=== PATIENT | female | born 1975 | race Caucasian/White ===

== ENCOUNTER 2018-07-09 20:57 | Observation (INO) | payer OTHER ==
[2018-07-09] MEDS ORDERED: ASPIRIN 81 MG TABLET, CHEWABLE PO ONE (22:53)
--- NOTE | 2018-07-09 22:56 | ER Document Report ---
ED Medical Screen (RME) - General Chief Complaint: Shortness Of Breath Stated Complaint: SHORTNESS OF BREATH Time Seen by Provider: 07/09/18 22:53 Notes: 43-year-old female with a history of MT, 2 stents, and smoking comes with chief complaint of bilateral lower extremity swelling worsening for days and chest pain that started tonight. She also reports some dyspnea on exertion. She took 81 mg of aspirin, nitroglycerin prior to arrival. Denies history of blood clots or congestive heart failure. TRAVEL OUTSIDE OF THE [place] IN LAST 30 DAYS: No Physical Exam - Vital signs Vitals: Temp Pulse Resp BP Pulse Ox 98.8 F 88 16 103/65 100 07/09/18 21:12 07/09/18 21:12 07/09/18 21:12 07/09/18 21:12 07/09/18 21:12 - Respiratory Respiratory status: No respiratory distress. No: Respiratory distress, Labored Breath sounds: No: Decreased air movement, Wheezing - Cardiovascular Rhythm: Regular. No: Tachycardia Heart sounds: Normal auscultation, S1 appreciated, S2 appreciated - Extremities General lower extremity: Other - Bilateral lower extremity swelling to the feet, distal and proximal tibial areas Course - Re-evaluation Re-evalutation: Patient does have bilateral lower extremity swelling but she is in no respiratory distress, lungs sound clear, vital signs unremarkable. Workup pen jena. I have greeted and performed a rapid initial assessment of this patient. A comprehensive ED assessment and evaluation of the patient, analysis of test results and completion of the medical decision making process will be conducted by additional ED providers. - Vital Signs Vital signs: Temp Pulse Resp BP Pulse Ox 98.8 F 88 16 103/65 100 07/09/18 21:12 07/09/18 21:12 07/09/18 21:12 07/09/18 21:12 07/09/18 21:12
--- NOTE | 2018-07-09 23:33 | RADIOLOGY REPORT (SQ) ---
XR CHEST 1 VIEW HISTORY: Chest pain. Shortness of breath. COMPARISON: None. FINDINGS: The heart size is normal. No consolidation, pleural effusion, or pneumothorax is seen. There are no acute bony findings. IMPRESSION: No evidence of acute cardiopulmonary disease.
[2018-07-09 23:42] LABS: ABSOLUTE BASOPHILS # (AUTO) 0.1 10^3/uL (0.0-0.2); ABSOLUTE EOSINOPHILS # (AUTO) 0.4 10^3/uL (0.0-0.6); ABSOLUTE LYMPHOCYTES (AUTO) 2.8 10^3/uL (0.5-4.7); ABSOLUTE MONOCYTES (AUTO) 0.9 10^3/uL (0.1-1.4); BASOPHILS % (AUTO) 0.8 % (0-2); HEMATOCRIT 32.4 % (36.0-47.0); HEMOGLOBIN 11.2 g/dL (12.0-15.5); MEAN CORPUSCULAR HEMOGLOBIN 31.5 pg (27.0-33.4); MEAN CORPUSCULAR HGB CONC 34.6 g/dL (32.0-36.0); MEAN CORPUSCULAR VOLUME 91 fl (80-97); MONOCYTES % (AUTO) 9.3 % (3-13); PLATELET COUNT 626 10^3/uL (150-450); RED BLOOD COUNT 3.56 10^6/uL (3.72-5.28); RED CELL DISTRIBUTION WIDTH 13.9 % (11.5-14.0); SEGMENTED NEUTROPHILS % (AUTO) 54.9 % (42-78); TOTAL CELLS COUNTED % (AUTO) 100 %; WHITE BLOOD COUNT 9.2 10^3/uL (4.0-10.5)
[2018-07-09 23:52] LABS: ALANINE AMINOTRANSFERASE 47 U/L (9-52); ALKALINE PHOSPHATASE 123 U/L (38-126); ANION GAP 10 (5-19); ASPARTATE AMINO TRANSFERASE 37 U/L (14-36); BILIRUBIN,DIRECT 0.2 mg/dL (0.0-0.4); BILIRUBIN,TOTAL 0.4 mg/dL (0.2-1.3); BLOOD UREA NITROGEN 14 mg/dL (7-20); CALCIUM 9.6 mg/dL (8.4-10.2); CARBON DIOXIDE 29 mmol/L (22-30); CHLORIDE 98 mmol/L (98-107); GLUCOSE 105 mg/dL (75-110); POTASSIUM 4.3 mmol/L (3.6-5.0); SODIUM 137.1 mmol/L (137-145); TOTAL PROTEIN 6.6 g/dL (6.3-8.2)
[2018-07-10 00:09] LABS: NT PRO BNP 97 pg/mL (<125)
[2018-07-10 00:10] LABS: TROPONIN I < 0.012 ng/mL
[2018-07-10] MEDS ORDERED: LACTULOSE SYRUP 20 GM/30 ML UDCUP PO ONE (01:37)
--- NOTE | 2018-07-10 01:40 | ER Document Report ---
ED Cardiac - General Chief Complaint: Shortness Of Breath Stated Complaint: SHORTNESS OF BREATH Time Seen by Provider: 07/09/18 22:53 Mode of Arrival: Ambulatory Information source: Patient Notes: Patient complained of chest pain which started this evening around 6 PM when she was resting at home. She took 1 tablet of sublingual nitroglycerin and the pain went away. She also complained of shortness of breath which has been ongoing for the past 2 weeks and bilateral leg swelling which started 6 days ago. She denies a history of myocardial infarction with stent placement in November 2017 a normal Echocardiogram in November. She denies ever having a stress test in the past. TRAVEL OUTSIDE OF THE [place] IN LAST 30 DAYS: No - HPI Patient complains to provider of: Chest pain, Shortness of breath Was the onset of pain: Sudden Is the pain a: New problem Chest pain location: Substernal Quality of pain: Intermittent, Achy, Dull Severity now: Moderate Severity at worst: Moderate Pain level currently: 3 Chest pain precipitating factors: At Rest Cardiac risk factors: Hypertension, Hx NH Positive cardiac history: Yes Associated symptoms: denies: Abdominal pain, Nausea/vomiting Exacerbated by: Denies Relieved by: Nothing Similar symptoms previously: Yes Recently seen / treated by doctor: No - Related Data Allergies/Adverse Reactions: Sulfa (Sulfonamide Antibiotics) Allergy (Verified 07/09/18 23:02) Past Medical History - Social History Smoking Status: Current Every Day Smoker Frequency of alcohol use: None Drug Abuse: None Family History: Reviewed & Not Pertinent Patient has suicidal ideation: No Patient has homicidal ideation: No - Past Medical History Cardiac Medical History: Reports: Hx Heart Attack, Hx Hypercholesterolemia, Hx Hypertension Renal/ Medical History: Denies: Hx Peritoneal Dialysis Past Surgical History: Reports: Hx Cardiac Surgery Review of Systems - Review of Systems Constitutional: No symptoms reported EENT: No symptoms reported Cardiovascular: Chest pain Respiratory: Short of breath Gastrointestinal: No symptoms reported Genitourinary: No symptoms reported Female Genitourinary: No symptoms reported Musculoskeletal: Leg swelling Skin: No symptoms reported Hematologic/Lymphatic: No symptoms reported Neurological/Psychological: No symptoms reported -: Yes All other systems reviewed and negative Physical Exam - Vital signs Vitals: Temp Pulse Resp BP Pulse Ox 98.8 F 88 16 103/65 100 07/09/18 21:12 07/09/18 21:12 07/09/18 21:12 07/09/18 21:12 07/09/18 21:12 Interpretation: Normal - General General appearance: Appears well, Alert, Other - Obese In distress: None - HEENT Head: Normocephalic, Atraumatic Eyes: Normal Pupils: PERRL - Respiratory Respiratory status: No respiratory distress Chest status: Nontender Breath sounds: Normal Chest palpation: Normal - Cardiovascular Rhythm: Regular Heart sounds: Normal auscultation Murmur: No - Abdominal Inspection: Normal Distension: No distension Bowel sounds: Normal Tenderness: Nontender Organomegaly: No organomegaly - Back Back: Normal, Nontender - Extremities General upper extremity: Normal inspection, Nontender, Normal color, Normal ROM, Normal temperature General lower extremity: Normal inspection, Tender - Bilateral calf tenderness to palpation., Edema - 2+ pedal pitting edema bilaterally., Normal color, Normal ROM, Normal temperature, Normal weight bearing, Dominic's sign - Bilateral calf tenderness to palpation - Neurological Neuro grossly intact: Yes Cognition: Normal Orientation: AAOx4 [place] Coma Scale Eye Opening: Spontaneous [place] Coma Scale Verbal: Oriented [place] Coma Scale Motor: Obeys Commands [place] Coma Scale Total: 15 Speech: Normal Motor strength normal: LUE, RUE, LLE, RLE Sensory: Normal - Psychological Associated symptoms: Normal affect, Normal mood - Skin Skin Temperature: Warm Skin Moisture: Dry Skin Color: Normal Course - Vital Signs Vital signs: Temp Pulse Resp BP Pulse Ox 97.6 F 84 18 116/65 100 07/10/18 04:15 07/10/18 04:15 07/10/18 04:15 07/10/18 04:15 07/10/18 04:15 - Laboratory Result Diagrams: 07/09/18 23:25 07/09/18 23:25 Laboratory results interpreted by me: 07/09/18 07/09/18 23:25 23:25 RBC 3.56 L Hgb 11.2 L Hct 32.4 L Plt Count 626 H AST 37 H - Diagnostic Test Radiology reviewed: Reports reviewed - EKG Interpretation by Ma EKG shows normal: Sinus rhythm Rate: Normal - 89 Rhythm: NSR When compared to previous EKG there are: Previous EKG unavailable Additional EKG results interpreted by me: 07/10/18 01:41 Diffuse T wave abnormalities which is nonspecific. No old EKG for comparison. No STEMI. - Transfer of Care Notes: 07/10/18 01:41 Patient care was discussed with Dr. Yaw Iqbal with the hospitalist aviation project manager. He will admit patient to the hospital for further evaluation and management. Discharge - Discharge Clinical Impression: Chest pain at rest, Bilateral lower extremity edema Condition: Stable Disposition: ADMITTED INPATIENT Admitting Provider: Hospitalist Unit Admitted: Telemetry
[2018-07-10] MEDS ORDERED: NICOTINE 21 MG/24 HR PATCH.TD24 TD PRN (02:04)
[2018-07-10] MEDS ORDERED: CYCLOBENZAPRINE HCL 10 MG TABLET PO PRN (03:56)
[2018-07-10] MEDS ORDERED: ACETAMINOPHEN 325 MG TABLET PO PRN (05:34)
[2018-07-10] MEDS ORDERED: MAG HYDROX/AL HYDROX/SIMETH SUSP 30 ML UDCUP PO PRN (05:34)
[2018-07-10] MEDS ORDERED: NITROGLYCERIN 0.4 MG/TAB 25 TAB/BOTTLE SL PRN (05:34)
--- NOTE | 2018-07-10 06:44 | PDOC H&P ---
History of Present Illness Admission Date/PCP: 07/10/18 01:57 NICCI DOVER NP Patient complains of: Chest pain History of Present Illness: HIEU ALVAREZ is a 43 year old female with a past medical history of morbid obesity, hypertension, dyslipidemia, coronary artery disease with stent times 13 November 2017, persistent tobacco abuse and chronic back pain. She presents 10 days following lumbar spine back surgery with 6 days of bilateral leg swelling, fatigue, chest pain and constipation. In the emergency room she has an unremarkable workup and referred to the hospitalist for admission. Patient denies palpitations, admits nausea without vomiting and cannot recall her last bowel movement. Patient has been extremely sedentary following her back surgery ambulating with a walker a maximum of 20 feet. Recent change in medications include additional unknown narcotic. Past Medical History Cardiac Medical History: Reports: Myocardial Infarction, Hyperlipidema, Hypertension Endocrine Medical History: Reports: Obesity Psychiatric Medical History: Reports: Tobacco Dependency Denies: Depression Past Surgical History Past Surgical History: Reports: Coronary Stent - November 2017, Orthopedic Surgery - L-spine back surgery 10 days ago Social History Information Source: Patient Lives with: Friend Smoking Status: Current Every Day Smoker Cigarettes Packs Per Day: 1 Number of Years Smokin Last Time Smoked: 07/09/2018 Frequency of Alcohol Use: None Hx Recreational Drug Use: No Drugs: None Hx Prescription Drug Abuse: No - Advance Directive Resuscitation Status: Full Code Family History Family History: CAD, COPD, DM Parental Family History Reviewed: Yes Children Family History Reviewed: Yes Sibling(s) Family History Reviewed.: Yes Medication/Allergy Home Medications: Aspirin [Aspirin 81 mg Chewable Tablet] 81 mg PO DAILY 07/10/18 Atorvastatin Calcium [Lipitor 80 mg Tablet] 80 mg PO QHS 07/10/18 Cyclobenzaprine HCl [Flexeril 10 mg Tablet] 10 mg PO TIDP PRN 07/10/18 Escitalopram Oxalate [Lexapro 10 mg Tablet] 10 mg PO DAILY 07/10/18 Ezetimibe [Zetia] 10 mg PO DAILY 07/10/18 Famotidine [Pepcid 20 mg Tablet] 20 mg PO BID 07/10/18 Gabapentin [Neurontin 300 mg Capsule] 600 mg PO TID 07/10/18 Losartan Potassium [Cozaar 25 mg Tablet] 25 mg PO DAILY 07/10/18 Metoprolol Succinate [Toprol XL 100 mg Tablet] 100 mg PO DAILY 07/10/18 [place]-3 Acid Ethyl Esters [Lovaza 1 gm Capsule] 1 gm PO BID 07/10/18 Allergies/Adverse Reactions: Sulfa (Sulfonamide Antibiotics) Allergy (Verified 07/09/18 23:02) Review of Systems Constitutional: PRESENT: as per HPI, anorexia, fatigue, weight gain. ABSENT: fever(s) Eyes: ABSENT: visual disturbances Ears: ABSENT: hearing changes Cardiovascular: PRESENT: as per HPI, dyspnea on exertion, edema. ABSENT: orthropnea, palpitations Respiratory: PRESENT: dyspnea Gastrointestinal: PRESENT: as per HPI, abdominal pain, bloating, constipation, nausea. ABSENT: vomiting Genitourinary: PRESENT: as per HPI Musculoskeletal: PRESENT: as per HPI, back pain, muscle weakness, other - Deconditioning Integumentary: PRESENT: other - L-spine surgical site clean dry without erythema or pain. ABSENT: rash, wounds Neurological: ABSENT: abnormal gait, abnormal speech, confusion, dizziness, focal weakness, syncope Psychiatric: ABSENT: anxiety, depression, homidical ideation, suicidal ideation Endocrine: ABSENT: cold intolerance, heat intolerance, polydipsia, polyuria Hematologic/Lymphatic: ABSENT: easy bleeding, easy bruising Physical Exam Vital Signs: Temp Pulse Resp BP Pulse Ox 97.6 F 84 18 116/65 100 07/10/18 04:15 07/10/18 04:15 07/10/18 04:15 07/10/18 04:15 07/10/18 04:15 Intake & Output 07/08/18 07/09/18 07/10/18 11:59 11:59 11:59 Weight 114.3 kg General appearance: PRESENT: no acute distress, cooperative, morbidly obese Head exam: PRESENT: atraumatic, normocephalic Eye exam: PRESENT: conjunctiva pink, EOMI, PERRLA. ABSENT: scleral icterus Ear exam: PRESENT: normal external ear exam Mouth exam: PRESENT: moist, tongue midline Neck exam: ABSENT: carotid bruit, JVD, lymphadenopathy, thyromegaly Respiratory exam: PRESENT: clear to auscultation remy. ABSENT: rales, rhonchi, wheezes Cardiovascular exam: PRESENT: RRR. ABSENT: diastolic murmur, rubs, systolic murmur Pulses: PRESENT: normal dorsalis pedis pul Vascular exam: PRESENT: normal capillary refill GI/Abdominal exam: PRESENT: diminished bowel sounds, distended, hypoactive bowel sounds, normal bowel sounds, soft. ABSENT: guarding, mass, organolmegaly, rebound, tenderness Rectal exam: PRESENT: deferred Extremities exam: PRESENT: full ROM, +1 edema. ABSENT: calf tenderness, clubbing, pedal edema, tenderness Musculoskeletal exam: PRESENT: other - L-spine surgical site clean, dry, without erythema or pain Neurological exam: PRESENT: alert, awake, oriented to person, oriented to place, oriented to time, oriented to situation, CN II-XII grossly intact. ABSENT: motor sensory deficit Psychiatric exam: PRESENT: appropriate affect, normal mood. ABSENT: homicidal ideation, suicidal ideation Skin exam: PRESENT: dry, intact, warm. ABSENT: cyanosis, rash Results Laboratory Results: 07/09/18 23:25 07/09/18 23:25 07/09/18 07/09/18 07/09/18 23:25 23:25 23:25 WBC 9.2 RBC 3.56 L Hgb 11.2 L Hct 32.4 L MCV 91 MCH 31.5 MCHC 34.6 RDW 13.9 Plt Count 626 H Seg Neutrophils % 54.9 Lymphocytes % 31.0 Monocytes % 9.3 Eosinophils % 4.0 Basophils % 0.8 Absolute Neutrophils 5.0 Absolute Lymphocytes 2.8 Absolute Monocytes 0.9 Absolute Eosinophils 0.4 Absolute Basophils 0.1 Sodium 137.1 Potassium 4.3 Chloride 98 Carbon Dioxide 29 Anion Gap 10 BUN 14 Creatinine 1.01 Est GFR ( Amer) > 60 Est GFR (Non-Af Amer) > 60 Glucose 105 Calcium 9.6 Total Bilirubin 0.4 AST 37 H ALT 47 Alkaline Phosphatase 123 Total Protein 6.6 Albumin 4.0 Serum HCG, Qual NEGATIVE 07/09/18 07/10/18 23:25 02:15 Troponin I < 0.012 < 0.012 NT-Pro-B Natriuret Pep 97 Impressions: Chest X-Ray 07/09/18 22:53 IMPRESSION: No evidence of acute cardiopulmonary disease. Assessment and Plan - Diagnosis (1) Chest pain Is this a current diagnosis for this admission?: Yes Plan: Atypical chest pain though the patient's pain is atypical there are multiple risk factors for coronary artery disease and subsequently will observe and evaluation of acute coronary syndrome versus coronary artery disease with anginal equivalents. Cardiac monitoring blood pressure Q6 hours ,TSH, lipid profile, serial cardiac enzymes and cardiac stress test (2) Constipation Is this a current diagnosis for this admission?: Yes Plan: Lactulose, Fleet enema as needed (3) Bilateral lower extremity edema Is this a current diagnosis for this admission?: Yes Plan: Venous stasis secondary to immobility. SADIE stockings ordered - Time Time Spent with patient: 25-34 minutes
[2018-07-10] MEDS ORDERED: FAMOTIDINE 20 MG TABLET PO SCH (10:00)
[2018-07-10] MEDS ORDERED: LOSARTAN POTASSIUM 25 MG TABLET PO SCH (10:00)
[2018-07-10] MEDS ORDERED: ESCITALOPRAM OXALATE 10 MG TABLET PO SCH (10:00)
[2018-07-10] MEDS ORDERED: EZETIMIBE 10 MG TABLET PO SCH (10:00)
[2018-07-10] MEDS ORDERED: TICAGRELOR 90 MG TABLET PO SCH (10:00)
[2018-07-10] MEDS ORDERED: ASPIRIN 81 MG TABLET, CHEWABLE PO SCH (10:00)
[2018-07-10] MEDS: GABAPENTIN 300 MG CAPSULE PO SCH ×2 (10:33→14:23)
[2018-07-10] MEDS ORDERED: REGADENOSON INJ 0.4 MG/5 ML DISP.SYRIN IV ONE (12:01)
[2018-07-10 14:53] VITALS: BP 103/65
--- NOTE | 2018-07-10 15:07 | XCELERA REPORT ---
[address] [facility] [address] Lower Extremity Venous Evaluation Procedure: Color flow and duplex imaging bilaterally of the veins of the lower extremities as well as the Common Femoral veins. Right Sided Venous Evaluation Normal vessel filling wall to wall, compression and augmentation as well as Colour flow down to the infrageniculate veins. Left Sided Venous Evaluation Normal vessel filling wall to wall, compression and augmentation as well as Colour flow down to the infrageniculate veins. Interpretation Summary No duplex evidence of DVT or obstruction in the bilateral lower extremities. Name: HIEU ALVAREZ Age: 43 yrs Gender: Female : 1975 Patient Status: Inpatient Patient Location: [facility]^A Study Date: 07/10/2018 11:35 AM Reason For Study: Bilateral leg pain and swelling, evaluate for DVT. Ordering Physician: SADI TINAJERO Performed By: Nasim Jaffe : SADI TINAJERO > Regino Yuen
--- NOTE | 2018-07-10 17:54 | PDOC DISCHARGE SUMMARY ---
General - Admit/Disc Date/PCP Admission Date/Primary Care Provider: 07/10/18 01:57 NICCI DOVER NP Discharge Date: 07/10/18 - Discharge Diagnosis (1) Chest pain Is this a current diagnosis for this admission?: Yes - Additional Information Resuscitation Status: Full Code Prescriptions: Isosorbide Mononitrate [Imdur 30 mg Tablet.er] 30 mg PO DAILY #30 tab.er.24h Pantoprazole Sodium [Protonix] 40 mg PO QAM #30 tablet. Home Medications: Aspirin [Adult Low Dose Aspirin EC] 81 mg PO DAILY 07/10/18 Atorvastatin Calcium [Lipitor 80 mg Tablet] 80 mg PO QHS 07/10/18 Cyclobenzaprine HCl [Flexeril 10 mg Tablet] 10 mg PO Q8HP PRN 07/10/18 Escitalopram Oxalate [Lexapro 10 mg Tablet] 10 mg PO DAILY 07/10/18 Ezetimibe [Zetia 10 mg Tablet] 10 mg PO DAILY 07/10/18 Famotidine [Pepcid 20 mg Tablet] 20 mg PO BID 07/10/18 Gabapentin [Neurontin 300 mg Capsule] 600 mg PO Q8 07/10/18 Isosorbide Mononitrate [Imdur 30 mg Tablet.er] 30 mg PO DAILY #30 tab.er.24h 07/10/18 Losartan Potassium [Cozaar 25 mg Tablet] 25 mg PO DAILY 07/10/18 Metoprolol Succinate [Toprol XL 100 mg Tablet] 100 mg PO DAILY 07/10/18 [place]-3 Acid Ethyl Esters [Lovaza 1 gm Capsule] 1 gm PO BID 07/10/18 Oxycodone HCl [Oxy-Ir 5 mg Tablet] 5 mg PO Q6HP PRN 07/10/18 Pantoprazole Sodium [Protonix] 40 mg PO QAM #30 tablet. 07/10/18 Ticagrelor [Brilinta 90 mg Tablet] 90 mg PO BID 07/10/18 History of Present Illness History of Present Illness: Admitting hospitalist's H&P: HIEU ALVAREZ is a 43 year old female with a past medical history of morbid obesity, hypertension, dyslipidemia, coronary artery disease with stent times 13 November 2017, persistent tobacco abuse and chronic back pain. She presents 10 days following lumbar spine back surgery with 6 days of bilateral leg swelling, fatigue, chest pain and constipation. In the emergency room she has an unremarkable workup and referred to the hospitalist for admission. Patient denies palpitations, admits nausea without vomiting and cannot recall her last bowel movement. Patient has been extremely sedentary following her back surgery ambulating with a walker a maximum of 20 feet. Recent change in medications include additional unknown narcotic. Hospital Course Hospital Course: This is a 43 yr old female with CAD S/P stenting x 2 and GERD who presented with chest pain and was admitted to rule out ACS. Patient's serial troponins were all negative. EKG also was unremarkable. Stress testing was pursued and results were discussed with cardiology. There was a very small reversible defect on the apical region. Cardio recommends optimizing medical therapy. Imdur will be added to her regimen. She will closely follow up with Dr. Saini as outpatient. Patient described her chest discomfort more as "burning sensation". She does have history of GERD and was on ranitidine before. She will also be discharged with a trial of Protonix. Physical Exam Vital Signs: Temp Pulse Resp BP Pulse Ox 97.5 F 92 16 103/65 98 07/10/18 14:53 07/10/18 14:53 07/10/18 14:53 07/10/18 14:53 07/10/18 14:53 Intake & Output 07/09/18 07/10/18 07/11/18 06:59 06:59 06:59 Weight 253 lb 8.505 oz General appearance: PRESENT: no acute distress, well-developed, well-nourished Head exam: PRESENT: atraumatic, normocephalic Eye exam: PRESENT: conjunctiva pink, EOMI, PERRLA. ABSENT: scleral icterus Ear exam: PRESENT: normal external ear exam Mouth exam: PRESENT: moist, tongue midline Neck exam: ABSENT: carotid bruit, JVD, lymphadenopathy, thyromegaly Respiratory exam: PRESENT: clear to auscultation remy. ABSENT: rales, rhonchi, wheezes Cardiovascular exam: PRESENT: RRR. ABSENT: diastolic murmur, rubs, systolic murmur Pulses: PRESENT: normal dorsalis pedis pul Vascular exam: PRESENT: normal capillary refill GI/Abdominal exam: PRESENT: normal bowel sounds, soft. ABSENT: distended, guarding, mass, organolmegaly, rebound, tenderness Rectal exam: PRESENT: deferred Extremities exam: PRESENT: full ROM. ABSENT: calf tenderness, clubbing, pedal edema Neurological exam: PRESENT: alert, awake, oriented to person, oriented to place, oriented to time, oriented to situation, CN II-XII grossly intact. ABSENT: motor sensory deficit Results Laboratory Results: 07/09/18 23:25 07/09/18 23:25 07/09/18 07/09/18 07/09/18 23:25 23:25 23:25 WBC 9.2 RBC 3.56 L Hgb 11.2 L Hct 32.4 L MCV 91 MCH 31.5 MCHC 34.6 RDW 13.9 Plt Count 626 H Seg Neutrophils % 54.9 Lymphocytes % 31.0 Monocytes % 9.3 Eosinophils % 4.0 Basophils % 0.8 Absolute Neutrophils 5.0 Absolute Lymphocytes 2.8 Absolute Monocytes 0.9 Absolute Eosinophils 0.4 Absolute Basophils 0.1 Sodium 137.1 Potassium 4.3 Chloride 98 Carbon Dioxide 29 Anion Gap 10 BUN 14 Creatinine 1.01 Est GFR ( Amer) > 60 Est GFR (Non-Af Amer) > 60 Glucose 105 Calcium 9.6 Total Bilirubin 0.4 AST 37 H ALT 47 Alkaline Phosphatase 123 Total Protein 6.6 Albumin 4.0 Serum HCG, Qual NEGATIVE 07/09/18 07/10/18 07/10/18 23:25 02:15 06:00 Troponin I < 0.012 < 0.012 < 0.012 NT-Pro-B Natriuret Pep 97 Impressions: Chest X-Ray 07/09/18 22:53 IMPRESSION: No evidence of acute cardiopulmonary disease. Qualifiers - * PATIENT BEING DISCHARGED WITH ANY OF THE FOLLOWING DIAGNOSIS: No
--- NOTE | 2018-07-10 20:59 | EKG REPORT ---
SEVERITY:- BORDERLINE ECG - SINUS RHYTHM BORDERLINE PROLONGED QT INTERVAL : Confirmed by: Candice Moran MD 10-Jul-2018 20:59:23
--- NOTE | 2018-07-10 20:59 | EKG REPORT ---
SEVERITY:- BORDERLINE ECG - SINUS RHYTHM BORDERLINE T ABNORMALITIES, INFERIOR LEADS : Confirmed by: Candice Moran MD 10-Jul-2018 20:59:14
[2018-07-10] MEDS ORDERED: ATORVASTATIN CALCIUM 80 MG TABLET PO SCH (22:00)
--- NOTE | 2018-07-11 18:09 | DRAGON STRESS TEST REPORT ---
Intravenous Lexiscan Cardiolite stress test using single photon emmision computerized tomography. Date of procedure: 07/10/2018. Ordering Provider: Dr. Yaw Iqbal. Patient's status: In Patient Indication: Chest pain in a patient with a prior history of coronary artery disease, myocardial infarction and history of stents.. Coronary risk factors: Age, hypertension, dyslipidemia, tobacco abuse disorder, and family history of coronary artery disease Resting EKG: Sinus Rhythm. No acute changes. The patient has no chest pain or discomfort, and there were no arrhythmias seen. Stress EKG: No changes of ischemia. The patient had no chest pain or discomfort, and there were no arrhythmias seen. Reason for termination: Protocol. Conclusions: Normal EKG and hemodynamic response to IV Lexiscan. Nuclear data: At rest the patient was given 10.93 millicuries of technetium 99m sestamibi injected intravenously. As per protocol rest non gated SPECT images were obtained. Subsequently the patient was given intravenous Lexiscan at a dose of 0.4 mg in 5 mL intravenously, followed by flush with normal saline. Subsequently the stress dose of millicuries of technetium 99m sestamibi was injected intravenously. As per protocol stress gated images were obtained. Nuclear interpretation: Review of images showed that this is a difficult study to interpret. There is a small area of mild perfusion defect involving the left ventricle apex, and the apical anterior wall in the stress images, which normalizes in the stress images. The rest of the segments of the myocardium had normal perfusion at rest, and normal perfusion post stress with IV Lexiscan. All segments of the myocardium had normal motion, contraction, and thickening by gated study. T. I D. ratio was normal at 0.90. There is no transient ischemic dilatation of the left ventricle. Computer read rest, and stress left ventricular ejection fraction were 60 %, and 59 %, respectively. Conclusion: 1. There is scintigraphic evidence of Lexiscan induced myocardial ischemia, involving a small area of very mild reversible ischemia of the apical anterior wall, and the left ventricle apex.. 2. There is no scintigraphic evidence of myocardial infarction/scar. Recommendations: 1. Aggressive treatment of coronary artery disease, and if the patient has recurrence of chest pain would recommend cardiac catheterization. 2. Aggressive risk factor modification, and treating the underlying co- morbidities. 3. Close cardiology follow-up as an outpatient [facility]
== END 2018-07-10 15:25 | disposition home or self-care (01) ==
LOC: ER 20:57 → EH 07-10 01:57 → INTOOBSV 07-10 01:57 → 3N 07-10 04:09
PROVIDERS: ADMIT Internal Medicine; ATTEND Internal Medicine
DX: R07.89 Other chest pain (principal); E78.5 Hyperlipidemia, unspecified; I10 Essential (primary) hypertension; G89.29 Other chronic pain; M54.9 Dorsalgia, unspecified; K59.00 Constipation, unspecified; K21.9 Gastro-esophageal reflux disease without esophagitis; M79.89 Other specified soft tissue disorders; R53.83 Other fatigue; R63.0 Anorexia; F17.210 Nicotine dependence, cigarettes, uncomplicated; I25.2 Old myocardial infarction; I25.10 Atherosclerotic heart disease of native coronary artery without angina pectoris; R14.0 Abdominal distension (gaseous); R11.0 Nausea; R06.02 Shortness of breath; E66.9 Obesity, unspecified; I87.8 Other specified disorders of veins; Z74.09 Other reduced mobility; Z79.82 Long term (current) use of aspirin; Z95.5 Presence of coronary angioplasty implant and graft; Z79.899 Other long term (current) drug therapy; Z98.890 Other specified postprocedural states; Z82.49 Family history of ischemic heart disease and other diseases of the circulatory system
CPT/HCPCS: 93005 ×2; 99285; 36415 ×2; 84703; 85025; 80053; 84484 ×2; 83880; 93970 ×2; 93017; 71045; 78452; 93010 ×2; G0378; A9500; J2785; J3490; Q9969

== ENCOUNTER 2018-08-05 00:25 | Emergency (ER) | payer OTHER ==
[2018-08-05 02:40] LABS: ABSOLUTE BASOPHILS # (AUTO) 0.1 10^3/uL (0.0-0.2); ABSOLUTE EOSINOPHILS # (AUTO) 0.3 10^3/uL (0.0-0.6); ABSOLUTE LYMPHOCYTES (AUTO) 2.9 10^3/uL (0.5-4.7); ABSOLUTE MONOCYTES (AUTO) 0.6 10^3/uL (0.1-1.4); ABSOLUTE NEUT (AUTO) 4.4 10^3/uL (1.7-8.2); BASOPHILS % (AUTO) 1.2 % (0-2); EOSINOPHILS % (AUTO) 3.9 % (0-6); HEMATOCRIT 33.1 % (36.0-47.0); HEMOGLOBIN 11.3 g/dL (12.0-15.5); MEAN CORPUSCULAR HEMOGLOBIN 30.6 pg (27.0-33.4); MEAN CORPUSCULAR HGB CONC 34.1 g/dL (32.0-36.0); MEAN CORPUSCULAR VOLUME 90 fl (80-97); PLATELET COUNT 445 10^3/uL (150-450); RED BLOOD COUNT 3.69 10^6/uL (3.72-5.28); SEGMENTED NEUTROPHILS % (AUTO) 52.9 % (42-78); TOTAL CELLS COUNTED % (AUTO) 100 %; WHITE BLOOD COUNT 8.2 10^3/uL (4.0-10.5)
[2018-08-05 02:45] LABS: INTERNATIONAL RATION (INR) 0.79; PARTIAL THROMBOPLASTIN TIME 31.7 SEC (23.5-35.8); PROTHROMBIN TIME 11.4 SEC (11.4-15.4)
[2018-08-05 02:54] LABS: D-DIMER 0.42 ug/mL (0.00-0.50)
--- NOTE | 2018-08-05 02:54 | RADIOLOGY REPORT (SQ) ---
EXAM DESCRIPTION: XR CHEST 1 VIEW COMPLETED DATE/TME: 08/05/2018 01:57 CLINICAL HISTORY: 43 years Female, cp COMPARISON:Jul 10 2018 NUMBER OF VIEWS/TECHNIQUE: 1/AP FINDINGS: Adequate lung volume, clear parenchyma, normal cardiac silhouette, and intact bony thorax.Atherosclerotic vascular disease. IMPRESSION: No acute cardiopulmonary findings.
[2018-08-05 02:59] LABS: ALANINE AMINOTRANSFERASE 24 U/L (9-52); ALBUMIN 4.1 g/dL (3.5-5.0); ALKALINE PHOSPHATASE 84 U/L (38-126); ANION GAP 10 (5-19); ASPARTATE AMINO TRANSFERASE 32 U/L (14-36); BILIRUBIN,DIRECT 0.4 mg/dL (0.0-0.4); BILIRUBIN,TOTAL 0.5 mg/dL (0.2-1.3); BLOOD UREA NITROGEN 13 mg/dL (7-20); CALCIUM 9.6 mg/dL (8.4-10.2); CARBON DIOXIDE 20 mmol/L (22-30); CHLORIDE 109 mmol/L (98-107); GLUCOSE 108 mg/dL (75-110); POTASSIUM 4.4 mmol/L (3.6-5.0); SODIUM 138.7 mmol/L (137-145)
[2018-08-05] MEDS ORDERED: METOPROLOL TARTRATE 50 MG TABLET PO ONE (03:06)
[2018-08-05] MEDS ORDERED: GABAPENTIN 300 MG CAPSULE PO ONE (03:41)
--- NOTE | 2018-08-05 03:42 | ER Document Report ---
ED General - General Chief Complaint: Shortness Of Breath Stated Complaint: DIFFICULTY BREATHING Time Seen by Provider: 08/05/18 01:56 Notes: Patient is a 43-year-old female with past medical history of coronary artery disease status post stenting in November 2017, tachycardia, hyperlipidemia, presents complaining of shortness of breath. Patient states that this started after she became upset earlier this evening at approximately 2030. She states she was upset because she was having severe uncontrolled pain in her bilateral lower extremities from chronic peripheral neuropathy and is currently out of most of her medications including gabapentin. She states that she began to feel somewhat short of breath, checked her heart rate and found to be into the 120s- 130s. She states that her symptoms were relatively abrupt in onset, progress ively worsening since that time. Nothing seemed to improve or worsen her symptoms. Denies a history of similar symptoms in regards to the shortness of breath in the past. Contrary to the triage assessment of the patient is clear to state that she is not having any chest pain. She states it feels like her heart is racing and that she cannot finish her sentence without needing to take a breath. She denies any history of DVT or pulmonary embolus. She denies any pleuritic pain. No supplemental estrogen. Did have spinal surgery approximately 6 weeks ago but has been up and ambulating per her normal since that time. Has not seen her primary care physician regarding today's concerns. TRAVEL OUTSIDE OF THE [place] IN LAST 30 DAYS: No - Related Data Allergies/Adverse Reactions: Sulfa (Sulfonamide Antibiotics) Allergy (Verified 07/09/18 23:02) Past Medical History - General Information source: Patient - Social History Smoking Status: Never Smoker Frequency of alcohol use: None Drug Abuse: None Lives with: Spouse/Significant other Family History: CAD, COPD, DM Patient has suicidal ideation: No Patient has homicidal ideation: No - Past Medical History Cardiac Medical History: Reports: Hx Heart Attack, Hx Hypercholesterolemia, Hx Hypertension Renal/ Medical History: Denies: Hx Peritoneal Dialysis Psychiatric Medical History: Denies: Hx Depression Past Surgical History: Reports: Hx Cardiac Surgery, Hx Coronary Stent - November 2017, Hx Orthopedic Surgery - L-spine back surgery 10 days ago Review of Systems - Review of Systems Notes: PHYSICAL EXAMINATION: GENERAL: Well-appearing, well-nourished and in no acute distress. HEAD: Atraumatic, normocephalic. EYES: Pupils equal round and reactive to light, extraocular movements intact, sclera anicteric, conjunctiva are normal. ENT: nares patent, oropharynx clear without exudates. Moist mucous membranes. NECK: Normal range of motion, supple without lymphadenopathy LUNGS: Breath sounds clear to auscultation bilaterally and equal. No wheezes rales or rhonchi. HEART: Regular rate and rhythm without murmurs ABDOMEN: Soft, nontender, normoactive bowel sounds. No guarding, no rebound. No masses appreciated. EXTREMITIES: Normal range of motion, no pitting or edema. No cyanosis. NEUROLOGICAL: No focal neurological deficits. Moves all extremities spontaneously and on command. PSYCH: Normal mood, normal affect. SKIN: Warm, Dry, normal turgor, no rashes or lesions noted. Physical Exam - Vital signs Vitals: Temp Pulse BP Pulse Ox 98.3 F 110 H 130/85 H 99 08/05/18 00:52 08/05/18 00:52 08/05/18 00:52 08/05/18 00:52 Interpretation: Tachycardic Notes: PHYSICAL EXAMINATION: GENERAL: Well-appearing, well-nourished and in no acute distress. HEAD: Atraumatic, normocephalic. EYES: Pupils equal round and reactive to light, extraocular movements intact, sclera anicteric, conjunctiva are normal. ENT: nares patent, oropharynx clear without exudates. Moist mucous membranes. NECK: Normal range of motion, supple without lymphadenopathy LUNGS: Breath sounds clear to auscultation bilaterally and equal. No wheezes rales or rhonchi. HEART: Regular tachycardia without murmurs ABDOMEN: Soft, nontender, normoactive bowel sounds. No guarding, no rebound. No masses appreciated. EXTREMITIES: Normal range of motion, no pitting or edema. No cyanosis. NEUROLOGICAL: No focal neurological deficits. Moves all extremities spontaneously and on command. PSYCH: Normal mood, normal affect. SKIN: Warm, Dry, normal turgor, no rashes or lesions noted. Course - Re-evaluation Re-evalutation: 08/05/18 03:48 Patient presents with palpitations with associated shortness of breath and feeling winded. Contrary to triage assessment note by the nurse the patient denied chest pain to me at all times. She states that she simply felt like she could not catch her breath at the end of a sentence, felt like her heart rate was going very fast, checked at home and found it to be up into the 120s-130s. Patient states that due to lack of insurance she has come off most all of her medications although still does take her Brilinta after receiving a drug-eluting stent at the end of November. Patient was hospitalized, had a stress test within the past 1 month that showed a very small area of reversible area of ischemia which was medically managed. EKG today without ischemic changes. Given patient's tachycardia and complaint of shortness of breath a d-dimer was obtained which is negative. Will not pursue CTA thereafter. Chest x-ray is clear without any evidence of pneumothorax, widened mediastinum. Pulses are symmetric bilaterally, blood pressures within 20 mmHg bilaterally. Troponin obtained 6 hours after onset of patient's shortness of breath is noted to be normal. I did have an extended conversation with the patient and her regarding obtaining a second troponin. We reviewed that although the patient did present and blood draw was obtained 6 hours after onset of her mild shortne ss of breath, the most cautious thing to do at this point would be to obtain a second troponin three hours after the initial. We did review that the probability that this would become positive is less than 5% but is not 0%. I did advise that this is the safest, most cautious approach would be a more definitive exclusion of any cardiac etiology of tonight's presentation. After this conversation the patient and her did elect to be discharged at this time accepting the non-insignificant risk that this could be an undetected infarction event that could be detected on a repeat troponin. They understand the risks of this approach, have verbalized an understanding of missed ischemic event. I have refilled the patient's metoprolol which she has run out of and I do suspect is a major contributor to tonight symptoms. The patient did come off of this medication abruptly within the past 3 days. I also refilled her gabapentin. Have advised need to continue all other medications and follow-up in the [facility] if she has lack of access to care. At this time will discharge with return precautions and follow-up recommendations. Verbal discharge instructions given a the bedside and opportunity for questions given. Medication warnings reviewed. Patient is in agreement with this plan and has verbalized understanding of return precautions and the need for primary care follow-up in the next 24-72 hours. - Vital Signs Vital signs: Temp Pulse Resp BP Pulse Ox 98.3 F 110 H 130/85 H 99 08/05/18 00:52 08/05/18 00:52 08/05/18 00:52 08/05/18 00:52 - Laboratory Result Diagrams: 08/05/18 02:27 08/05/18 02:27 Laboratory results interpreted by me: 08/05/18 08/05/18 02:27 02:27 RBC 3.69 L Hgb 11.3 L Hct 33.1 L RDW 15.0 H Chloride 109 H Carbon Dioxide 20 L - Diagnostic Test Radiology reviewed: Image reviewed, Reports reviewed Radiology results interpreted by me: 08/05/18 03:54 Chest x-ray: No acute infiltrate or pneumothorax - EKG Interpretation by Me Additional EKG results interpreted by me: 08/05/18 03:54 Sinus tachycardia, rate 115. No ST elevations or depressions. QTC is 465. Discharge - Discharge Clinical Impression: Shortness of breath, Beta-tamiko withdrawal, Palpitations Peripheral neuropathy Qualifiers: Peripheral neuropathy type: polyneuropathy, unspecified Qualified Code(s): G62.9 - Polyneuropathy, unspecified Condition: Stable Disposition: HOME, SELF-CARE Additional Instructions: You were seen today for shortness of breath and palpitations. The exact cause of your symptoms is unclear but could be related to coming off her beta-blockers abruptly. However, based on your cardiac enzyme testing, chest x-ray, and EKG it does not appear that it is from an immediately life-threatening cause at this time. After our conversation you have elected to go home after before a second troponin. Please return to emergency department immediately if you have worsening of your shortness of breath, develop chest pain, vomiting, become unable to exert yourself due to pain or difficulty breathing, you pass out, or have any pain that radiates into your arms, jaw, or back. Please also return if you have any additional symptoms that are concerning to you. Prescriptions: Gabapentin 600 mg PO TID #90 tablet Metoprolol Succinate [Toprol XL 100 mg Tablet] 100 mg PO DAILY #30 tab.sr.24h
[2018-08-05 04:07] VITALS: BP 134/83
--- NOTE | 2018-08-05 07:54 | EKG REPORT ---
SEVERITY:- ABNORMAL ECG - SINUS TACHYCARDIA BORDERLINE INFERIOR Q WAVES NONSPECIFIC ST-T CHANGES- ANTERIOR LEADS : Confirmed by: Omari Meneses MD 05-Aug-2018 07:53:51
== END 2018-08-05 04:07 | disposition home or self-care (01) ==
LOC: ER 00:25
DX: R06.02 Shortness of breath (principal); G62.9 Polyneuropathy, unspecified; R00.2 Palpitations; F15.93 Other stimulant use, unspecified with withdrawal; R00.0 Tachycardia, unspecified; E78.00 Pure hypercholesterolemia, unspecified; I10 Essential (primary) hypertension; Z88.2 Allergy status to sulfonamides; I25.2 Old myocardial infarction
CPT/HCPCS: 36415; 71045; 80053; 84484; 85025; 85379; 85610; 85730; 93005; 93010; 99285

== ENCOUNTER 2018-10-06 20:45 | Emergency (ER) | payer OTHER ==
[2018-10-06 22:16] LABS: ABSOLUTE BASOPHILS # (AUTO) 0.1 10^3/uL (0.0-0.2); ABSOLUTE EOSINOPHILS # (AUTO) 0.2 10^3/uL (0.0-0.6); ABSOLUTE LYMPHOCYTES (AUTO) 3.1 10^3/uL (0.5-4.7); ABSOLUTE MONOCYTES (AUTO) 0.5 10^3/uL (0.1-1.4); ABSOLUTE NEUT (AUTO) 4.6 10^3/uL (1.7-8.2); BASOPHILS % (AUTO) 1.2 % (0-2); HEMATOCRIT 40.4 % (36.0-47.0); HEMOGLOBIN 13.7 g/dL (12.0-15.5); INTERNATIONAL RATION (INR) 0.93; LYMPHOCYTES % (AUTO) 36.5 % (13-45); MEAN CORPUSCULAR HEMOGLOBIN 29.4 pg (27.0-33.4); MEAN CORPUSCULAR VOLUME 87 fl (80-97); MONOCYTES % (AUTO) 6.3 % (3-13); PLATELET COUNT 497 10^3/uL (150-450); PROTHROMBIN TIME 12.5 SEC (11.4-15.4); RED BLOOD COUNT 4.67 10^6/uL (3.72-5.28); RED CELL DISTRIBUTION WIDTH 15.9 % (11.5-14.0); TOTAL CELLS COUNTED % (AUTO) 100 %; WHITE BLOOD COUNT 8.6 10^3/uL (4.0-10.5)
[2018-10-06 22:33] LABS: ALANINE AMINOTRANSFERASE 28 U/L (9-52); ALBUMIN 4.6 g/dL (3.5-5.0); ALKALINE PHOSPHATASE 95 U/L (38-126); ANION GAP 16 (5-19); ASPARTATE AMINO TRANSFERASE 23 U/L (14-36); BILIRUBIN,DIRECT 0.3 mg/dL (0.0-0.4); BILIRUBIN,TOTAL 0.5 mg/dL (0.2-1.3); BLOOD UREA NITROGEN 10 mg/dL (7-20); CALCIUM 10.5 mg/dL (8.4-10.2); CARBON DIOXIDE 22 mmol/L (22-30); CHLORIDE 101 mmol/L (98-107); CREATINE KINASE 63 U/L (30-135); GLUCOSE 104 mg/dL (75-110); SODIUM 138.5 mmol/L (137-145); TOTAL PROTEIN 7.5 g/dL (6.3-8.2)
--- NOTE | 2018-10-06 22:50 | ER Document Report ---
ED General - General Chief Complaint: Chest Pain > 30 Stated Complaint: SHORTNESS OF BREATH,CHEST PAIN Time Seen by Provider: 10/06/18 22:49 Primary Care Provider: JERSEY GARCIA MD [ACTIVE STAFF] - Follow up tomorrow Notes: Patient is a 43-year-old female presents with complaint of chest pain. She has been stressing chest and radiates up into the left side of the neck. She does have a previous history of MD had 2 stents placed in 2018. She was seen here in June of this year and had a stress test which showed a small area of ischemia. At that time recommendations per the cardiology notes was to potentially do cardiac cath of chest pain return. Patient says since Friday she has had chest pain which is worsening. Is worse when she takes a deep breath. No fevers. No vomiting. No history of PE. She said that she has ran out of her cardiac meds with the exception of Brilinta. She supposed to take Brilinta twice a day but she is only been taking it once a day to try to make it last longer. She denies any fevers. No leg pain or leg swelling that is new. No vomiting. She does feel short of breath with the pain. She did run out of her metoprolol. She did take aspirin today at home before coming in. TRAVEL OUTSIDE OF THE [place] IN LAST 30 DAYS: No - Related Data Allergies/Adverse Reactions: Sulfa (Sulfonamide Antibiotics) Allergy (Verified 07/09/18 23:02) Past Medical History - Social History Smoking Status: Unknown if Ever Smoked Frequency of alcohol use: None Drug Abuse: None Family History: CAD, COPD, DM - Past Medical History Cardiac Medical History: Reports: Hx Heart Attack, Hx Hypercholesterolemia, Hx Hypertension Renal/ Medical History: Denies: Hx Peritoneal Dialysis Psychiatric Medical History: Denies: Hx Depression Past Surgical History: Reports: Hx Cardiac Surgery, Hx Coronary Stent - November 2017, Hx Orthopedic Surgery - L-spine back surgery 10 days ago Review of Systems - Review of Systems Notes: My Normal Review Basic REVIEW OF SYSTEMS: CONSTITUTIONAL : Denies fever, chills, or sweats. Denies recent illness. EENT: Denies eye, ear, throat, or mouth pain or symptoms. Denies nasal or sinus congestion. CARDIOVASCULAR: Has chest pain RESPIRATORY: Denies cough, cold, or chest congestion. Denies shortness of breath, difficulty breathing, or wheezing. GASTROINTESTINAL: Denies abdominal pain. Denies nausea, vomiting, or diarrhea. GENITOURINARY: Denies difficulty urinating, painful urination, burning, frequency, or blood in urine. MUSCULOSKELETAL: Denies neck or back pain or joint pain or swelling. SKIN: Denies rash or skin lesions. NEUROLOGICAL: Denies altered mental status or loss of consciousness. Denies headache. Denies weakness or paralysis or loss of use of either side. Denies problems with gait or speech. Denies sensory or motor loss. ALL OTHER SYSTEMS REVIEWED AND NEGATIVE. Physical Exam - Vital signs Vitals: Temp Pulse Resp BP Pulse Ox 98.0 F 104 H 22 H 143/95 H 99 10/06/18 21:10 10/06/18 21:10 10/06/18 21:10 10/06/18 21:10 10/06/18 21:10 - Notes Notes: General Appearance: Well nourished, alert, cooperative, no acute distress, moderate obvious discomfort. Vitals: reviewed, See vital signs table. Head: no swelling or tenderness to the head Eyes: PERRL, EOMI, Conjuctiva clear Mouth: No decreasd moisture Chest wall: Anterior chest wall is very tender to palpation. Patient says the pain I create with palpation of her chest wall is the same pain that she is been experiencing. Throat: No tonsillar inflammation, No airway obstruction, No lymphadenopathy Neck: Supple, no neck tenderness, No thyromegaly Lungs: No wheezing, No rales, No rhonci, No accessory muscle use, good air exchange bilaterally. Heart: Normal rate, Regular rythm, No murmur, no rub Abdomen: Normal BS, soft, No rigidity, No abdominal tenderness, No guarding, no rebound, no abdominal masses, no organomegaly Extremities: strength 5/5 in all extremities, good pulses in all extremities, no swelling or tenderness in the extremities, no edema. Skin: warm, dry, appropriate color, no rash Neuro: speech clear, oriented x 3, normal affect, responds appropriately to questions. Course - Re-evaluation Re-evalutation: 10/07/18 05:14 Patient's pain seems very consistent with that of musculoskeletal pain that is very easily reproducible with palpation also with inhalation and coughing. Pain the patient was initially tachycardic when she arrived and had pleuritic pain I did obtain a CTA which was negative. Patient's pain is unaffected by nitroglyc sol. Informed the patient that even though I think is less likely that her chest pains with coronary disease still recommend admission as the patient has multiple coronary risk factors, has been off her medications for her heart despite her history of stenting, and her last admission in June resulted in a positive stress test with recommendation for her to get a heart cath of pain continued. I informed the patient that this represents a possibility that her pain could be still cardiac related and if so needs to be treated urgently so that she does not have a heart attack which could potentially lead to . Patient shows understanding of this but she refused to stay in the hospital. She says that she does not want to stay in hospital. She does not have insurance and I explained to her that it would be harder for her to follow-up therefore she should really strongly consider staying in hospital. Patient shows understanding of this but still refuses to stay. I will re-prescribe her medications being that she does not have a doctor to give see. I will still refer her to the occupational health and safety officer for close follow-up. I strongly encouraged her return to ER anytime for reevaluation as we want to help her and want what is best for her. Patient agrees will be discharged home as she requests. Patient is awake alert oriented and shows capacity to make her own decisions and I cannot hold her against her will. Dictation of this chart was performed using voice recognition software; therefore, there may be some unintended grammatical errors. 10/07/18 05:19 - Vital Signs Vital signs: Temp Pulse Resp BP Pulse Ox 98.7 F 104 H 23 H 147/86 H 98 10/07/18 01:06 10/06/18 21:10 10/07/18 01:06 10/07/18 01:06 10/07/18 01:06 - Laboratory Result Diagrams: 10/06/18 21:52 10/06/18 21:52 Laboratory results interpreted by me: 10/06/18 10/06/18 21:52 21:52 RDW 15.9 H Plt Count 497 H Calcium 10.5 H - EKG Interpretation by Me Additional EKG results interpreted by me: 10/06/18 22:50 EKG is reviewed and interpreted by me. EKG shows sinus rhythm with a rate of [address] segment elevation or depression. No ischemic T wave inversions. CO interval, QRS duration, QT intervals are within normal range. Old EKG for comparison is from August 05, 2018. Discharge - Discharge Clinical Impression: Chest pain Qualifiers: Chest pain type: unspecified Qualified Code(s): R07.9 - Chest pain, unspecified Condition: Stable Disposition: HOME, SELF-CARE Additional Instructions: As discussed with you the exact cause of your chest pain is 100% clear. At this time I cannot rule out your heart as being a potential cause of why you are having chest pain. We do recommend admission. If this is your heart and we do not treat you appropriately this could lead to heart attack or potentially . There is no way to determine whether or you will have a bad outcome within the next 24 hours and this is why we prefer you to stay. We respect your decision to leave and understand that you do have prior priorities. Even though you are leaving we are not upset or mad. We just want what is best for you and therefore we encourage you to come back anytime if you have any recurrence of your symptoms. I have written prescriptions for your medications. Please take them as prescribed. Do not take the Brilinta when taking the Plavix. Please continue take your aspirin daily. I have placed a phone number to Dr. Garcia. He is the covering occupational health and safety officer. Please call his office to make a follow-up appointment. He is typically good about getting people into his office in a timely fashion. Please return to the ER anytime so we can reevaluate you and continue treatment. Please have a low threshold to return to the ER if you have worsening pain, difficulty breathing, or feel like you are worsening in any way. Prescriptions: RX: Atorvastatin Calcium [Lipitor 80 mg Tablet] 80 mg PO QHS #30 tablet RX: Clopidogrel Bisulfate [Plavix 75 mg Tablet] 75 mg PO DAILY #30 tablet RX: Losartan Potassium [Cozaar 25 mg Tablet] 25 mg PO DAILY #30 tablet RX: Metoprolol Succinate [Toprol XL 100 mg Tablet] 100 mg PO DAILY #30 tab.sr.24h Forms: Return to Work Referrals: JERSEY GARCIA MD [ACTIVE STAFF] - Follow up tomorrow
[2018-10-06] MEDS ORDERED: NITROGLYCERIN 0.4 MG/TAB 25 TAB/BOTTLE SL PRN (22:57)
[2018-10-06] MEDS ORDERED: NORMAL SALINE 1000 ML 1,000 ML IV ONE (22:57)
--- NOTE | 2018-10-06 23:14 | EKG REPORT ---
SEVERITY:- ABNORMAL ECG - SINUS RHYTHM PROBABLE INFERIOR INFARCT, AGE INDETERMINATE : Confirmed by: Gustavo Campoverde 06-Oct-2018 23:14:30
--- NOTE | 2018-10-07 00:16 | RADIOLOGY REPORT (SQ) ---
EXAM DESCRIPTION: CT CHEST ANGIOGRAPHY WITHOUT THEN WITH IV CONTRAST COMPLETED DATE/TME: 10/06/2018 22:58 CLINICAL HISTORY: 43 years, Female, chest pain COMPARISON: February TECHNIQUE: Axial images through the chest were performed after the administration of intravenous contrast using a pulmonary embolus protocol. MIPS were performed. This exam was performed according to our departmental dose-optimization program which includes use of Automated Exposure Control, adjustment of the mA and/or kV according to patient size and/or use of iterative reconstruction technique. FINDINGS: No pulmonary embolus is identified. Normal caliber aorta without dissection. Mild stenosis at the origin of the innominate artery. No pericardial effusion. Cardiac chambers are normal in size. Coronary artery calcifications are present. No pleural effusion. No focal lung consolidation. Mild hypoventilatory changes in the lung bases particularly on the right. 6 mm nodular density in the periphery of the right lower lobe. No pneumothorax. Patent central airway. Soft tissues are unremarkable. No acute osseous findings. No acute abnormality within the visualized upper abdomen. Diffuse hepatic steatosis. Small hiatal hernia. IMPRESSION: No pulmonary embolus. Mild bibasilar subsegmental atelectasis, right greater than left. Coronary artery calcifications. 6 mm pulmonary nodule in the right lower lobe. In a low-risk patient, recommend a non-contrast Chest CT at 6-12 months, then consider an additional non-contrast Chest CT at 18-24 months. In a high-risk patient, recommend a non-contrast Chest CT at 6-12 months, then another non-contrast Chest CT at 18-24 months. These guidelines do not apply to patients younger than 35 years, immunocompromised patients, and patients with cancer. F/u in patients with significant comorbidities as clinically warranted. For lung cancer screening, adhere to Lung-RADS guidelines. Reference: Radiology. 2017 Oct; 284(1):228-43
[2018-10-07] MEDS ORDERED: LOSARTAN POTASSIUM 25 MG TABLET PO ONE (01:04)
[2018-10-07] MEDS ORDERED: CLOPIDOGREL BISULFATE 75 MG TABLET PO ONE (01:04)
[2018-10-07] MEDS ORDERED: METOPROLOL SUCCINATE 50 MG TAB.SR.24H PO ONE (01:04)
[2018-10-07] MEDS ORDERED: SIMVASTATIN 40 MG TABLET PO ONE (01:05)
[2018-10-07 01:14] VITALS: BP 147/86
== END 2018-10-07 01:32 | disposition home or self-care (01) ==
LOC: ER 20:45
DX: R07.9 Chest pain, unspecified (principal); R06.02 Shortness of breath; E78.00 Pure hypercholesterolemia, unspecified; I10 Essential (primary) hypertension; Z88.2 Allergy status to sulfonamides; I25.2 Old myocardial infarction
CPT/HCPCS: 93005; 99285; 96360; 36415; 82550; 85025; 85610; 80053; 84484; 71275; 93010; J7030

== ENCOUNTER 2018-11-16 19:10 | Emergency (ER) | payer OTHER ==
--- NOTE | 2018-11-16 20:33 | ER Document Report ---
ED Medical Screen (RME) - General Chief Complaint: Upper Abdominal Pain Stated Complaint: STOMACH PAIN, SHORT OF BREATH Time Seen by Provider: 11/16/18 20:22 Primary Care Provider: JUSTO TRUJILLO JR, MD [Primary Care Provider] - Follow up as needed TRAVEL OUTSIDE OF THE [place] IN LAST 30 DAYS: No - HPI Notes: 11/16/18 20:31 Patient is a 43-year-old female with a history of coronary artery disease status post stenting in November 2017, tachycardia (not on meds but is supposed to be), hyperlipidemia who presents complaining of epigastric and right upper quadrant abdominal pain that is worse with food intake over the past couple weeks. She will have occasional nausea without vomiting. Patient has been complaining of constipation for the past couple weeks as well. Denies JIMENEZ, fever, neck pain, URI, CP, SOB, dysuria, back pain, or rash. I have treated and performed a rapid initial assessment of this patient. A comprehensive ED assessment and evaluation of the patient, analysis of test results and completion of medical decision making process will be conducted by additional ED providers. PHYSICAL EXAMINATION: GENERAL: Well-appearing, well-nourished and in no acute distress. A&Ox4. Answers questions appropriately. LUNGS: Breath sounds clear to auscultation bilaterally and equal. No wheezes rales or rhonchi. HEART: Regular rate and rhythm without murmurs, rubs, gallops. ABDOMEN: Soft, nondistended abdomen. No guarding, no rebound. Normal bowel sounds present. No CVA tenderness bilaterally. + RUQ/epigastric tenderness (cannot elicit thorough abd exam w/o bed, however). - Related Data Allergies/Adverse Reactions: Sulfa (Sulfonamide Antibiotics) Allergy (Verified 11/16/18 19:12) Past Medical History - Social History Frequency of alcohol use: None Drug Abuse: None - Past Medical History Cardiac Medical History: Reports: Hx Heart Attack, Hx Hypercholesterolemia, Hx Hypertension Renal/ Medical History: Denies: Hx Peritoneal Dialysis Psychiatric Medical History: Denies: Hx Depression Past Surgical History: Reports: Hx Cardiac Surgery, Hx Coronary Stent - November 2017, Hx Orthopedic Surgery Physical Exam - Vital signs Vitals: Temp Pulse Resp BP Pulse Ox 97.9 F 127 H 18 148/77 H 99 11/16/18 19:16 11/16/18 19:16 11/16/18 19:16 11/16/18 19:16 11/16/18 19:16 Course - Vital Signs Vital signs: Temp Pulse Resp BP Pulse Ox 97.9 F 127 H 18 148/77 H 99 11/16/18 19:16 11/16/18 19:16 11/16/18 19:16 11/16/18 19:16 11/16/18 19:16 Doctor's Discharge - Discharge Referrals: JUSTO TRUJILLO JR, MD [Primary Care Provider] - Follow up as needed
[2018-11-16 21:19] LABS: ABSOLUTE BASOPHILS # (AUTO) 0.1 10^3/uL (0.0-0.2); ABSOLUTE EOSINOPHILS # (AUTO) 0.2 10^3/uL (0.0-0.6); ABSOLUTE MONOCYTES (AUTO) 0.6 10^3/uL (0.1-1.4); ABSOLUTE NEUT (AUTO) 4.5 10^3/uL (1.7-8.2); BASOPHILS % (AUTO) 1.2 % (0-2); EOSINOPHILS % (AUTO) 1.9 % (0-6); HEMATOCRIT 41.6 % (36.0-47.0); LYMPHOCYTES % (AUTO) 35.4 % (13-45); MEAN CORPUSCULAR HEMOGLOBIN 29.7 pg (27.0-33.4); MEAN CORPUSCULAR HGB CONC 33.6 g/dL (32.0-36.0); MEAN CORPUSCULAR VOLUME 89 fl (80-97); MONOCYTES % (AUTO) 7.7 % (3-13); PLATELET COUNT 460 10^3/uL (150-450); RED BLOOD COUNT 4.69 10^6/uL (3.72-5.28); RED CELL DISTRIBUTION WIDTH 16.6 % (11.5-14.0); SEGMENTED NEUTROPHILS % (AUTO) 53.8 % (42-78); TOTAL CELLS COUNTED % (AUTO) 100 %; WHITE BLOOD COUNT 8.4 10^3/uL (4.0-10.5)
[2018-11-16 21:35] LABS: ALBUMIN 4.9 g/dL (3.5-5.0); ALKALINE PHOSPHATASE 70 U/L (38-126); ANION GAP 13 (5-19); ASPARTATE AMINO TRANSFERASE 31 U/L (14-36); BILIRUBIN,DIRECT 0.4 mg/dL (0.0-0.4); BILIRUBIN,TOTAL 0.4 mg/dL (0.2-1.3); BLOOD UREA NITROGEN 10 mg/dL (7-20); CALCIUM 10.6 mg/dL (8.4-10.2); CARBON DIOXIDE 25 mmol/L (22-30); CHLORIDE 101 mmol/L (98-107); GLUCOSE 95 mg/dL (75-110); POTASSIUM 4.3 mmol/L (3.6-5.0); TOTAL PROTEIN 8.1 g/dL (6.3-8.2)
--- NOTE | 2018-11-16 21:40 | RADIOLOGY REPORT (SQ) ---
EXAM DESCRIPTION: US ABDOMEN LIMITED COMPLETED DATE/TME: 11/16/2018 20:30 CLINICAL HISTORY: 43 years, Female, RUQ/epigastric pain COMPARISON: None. TECHNIQUE: Limited right upper quadrant ultrasound LIMITATIONS: None. FINDINGS: Diffusely echogenic appearance to the liver consistent with diffuse fatty infiltrative change. No gallstones or gallbladder wall thickening. The CBD measures 5 mm. Pancreas not well seen due to bowel gas. Visualized abdominal aorta and inferior vena cava are unremarkable. Right kidney is unremarkable. No ascites IMPRESSION: Fatty infiltrative change to the liver. Remainder is unremarkable copyright 2010 [employer]- All Rights Reserved
--- NOTE | 2018-11-16 22:37 | RADIOLOGY REPORT (SQ) ---
XR ABDOMEN 1 VIEW (KUB) CLINICAL STATEMENT: abd pain COMPARISON: None FINDINGS: No abnormal renal or ureteral calculus identified. Mild amount of stool in the colon. No free air. No dilated loops of bowel or air-fluid levels. Postoperative changes in the lower lumbar spine. IMPRESSION: No evidence for bowel obstruction.
--- NOTE | 2018-11-17 00:11 | ER Document Report ---
ED General - General Chief Complaint: Upper Abdominal Pain Stated Complaint: STOMACH PAIN, SHORT OF BREATH Time Seen by Provider: 11/16/18 20:22 Primary Care Provider: JUSTO TRUJILLO JR, MD [NO LOCAL MD] - Follow up as needed TRAVEL OUTSIDE OF THE [place] IN LAST 30 DAYS: No - HPI Notes: Patient is a 43-year-old female that presents to the emergency department for chief complaint of abdominal pain. Patient reports right upper quadrant abdominal pain for the last 2 to 3 weeks. She states it is a achy throbbing sensation that sometimes radiates into her right back and right shoulder. The pain occurs after eating. She denies associated diarrhea but does states she has been constipated for the last week. She reports some nausea with no vomiting. She denies any fevers or chills. She does report history of GERD and has been taking Tums but is not on her Protonix. Patient states that because of financial reasons she has not been on any of her medications for the last 2 months. She states she is currently trying to get insurance and disability to help with her medical issues. Past Medical History: CAD, hypertension, hyperlipidemia, tachycardia Past Surgical History: Coronary stenting Social History: Daily tobacco. Denies drug and alcohol use Family History: Reviewed and noncontributory for presenting illness Allergies: Reviewed, see documented allergy list. REVIEW OF SYSTEMS: CONSTITUTIONAL : No fever No chills No diaphoresis No recent illness EENT: No vision changes No congestion No sore throat CARDIOVASCULAR: No chest pain No palpitations RESPIRATORY: No shortness of breath No cough No difficulty breathing GASTROINTESTINAL: abdominal pain nausea No vomiting No diarrhea GENITOURINARY: No dysuria No hematuria No difficulty urinating MUSCULOSKELETAL: No back pain No leg pain No arm pain SKIN: No rashes No lesions LYMPHATIC: No swollen, enlarged glands. NEUROLOGICAL: No lightheadedness No headache No weakness No paresthesias PSYCHIATRIC: No anxiety No depression PHYSICAL EXAMINATION: Vital signs reviewed, nursing noted reviewed. GENERAL: Well-appearing, obese and in no acute distress. HEAD: Atraumatic, normocephalic. EYES: Eyes appear normal, extraocular movements intact, sclera anicteric, conjunctiva are normal. ENT: nares patent, oropharynx clear without exudates. Moist mucous membranes. NECK: Normal range of motion, supple without lymphadenopathy LUNGS: Breath sounds clear to auscultation bilaterally and equal. No wheezes rales or rhonchi. HEART: Tachycardic rate and regular rhythm without murmurs ABDOMEN: Soft, mild epigastric and right upper quadrant tenderness, negative Gleason sign, normoactive bowel sounds. No rebound, guarding, or rigidity. No masses appreciated. EXTREMITIES: Nontender, good range of motion, no pitting or edema. NEUROLOGICAL: No focal neurological deficits. Moves all extremities spontaneously Motor and sensory grossly intact on exam. PSYCH: Normal mood, normal affect. SKIN: Warm, Dry, normal turgor, no rashes or lesions noted on exposed skin - Related Data Allergies/Adverse Reactions: Sulfa (Sulfonamide Antibiotics) Allergy (Verified 11/16/18 19:12) Past Medical History - Social History Smoking Status: Current Every Day Smoker Frequency of alcohol use: None Drug Abuse: None Family History: CAD, COPD, DM Patient has suicidal ideation: No Patient has homicidal ideation: No - Past Medical History Cardiac Medical History: Reports: Hx Heart Attack, Hx Hypercholesterolemia, Hx Hypertension Renal/ Medical History: Denies: Hx Peritoneal Dialysis Psychiatric Medical History: Denies: Hx Depression Past Surgical History: Reports: Hx Cardiac Surgery, Hx Coronary Stent - November 2017, Hx Orthopedic Surgery Physical Exam - Vital signs Vitals: Temp Pulse Resp BP Pulse Ox 97.9 F 127 H 18 148/77 H 99 11/16/18 19:16 11/16/18 19:16 11/16/18 19:16 11/16/18 19:16 11/16/18 19:16 Course - Re-evaluation Re-evalutation: 11/17/18 00:34 Vitals reviewed. Nursing notes reviewed. Patient is well-appearing and in no acute distress. She does have mild right upper quadrant tenderness however ultrasound shows no cholelithiasis or acute cholecystitis. Patient's lab work shows no elevation in her liver function. She has no electrolyte abnormalities or renal insufficiency. Patients symptoms are consistent with biliary colic. She was counseled on dietary changes and referred to surgery for further evaluation of her right upper quadrant pain. Patient also has a significant history of CAD and tachycardia. She is not currently on any of her medications including aspirin, Plavix, metoprolol and statins. Patient states her heart rate usually runs around 130 without her metoprolol. She states she has not been able to afford these medications. I did have a lengthy discussion with her regarding lifestyle modifications and told her frankly that if she quit smoking she could afford her medications and quitting tobacco use would also improve her heart disease. Patient did receive this information well and states she will work on stopping tobacco and getting back on her medications. I will prescribe her home medications and encouraged her to begin taking them. Patient was given a dose of Toprol-XL for her tachycardia in the ED today. She sees the [facility] and was advised to follow with them closely. She is stable at discharge. Laboratory 11/16/18 11/16/18 21:03 21:03 WBC 8.4 RBC 4.69 Hgb 14.0 Hct 41.6 MCV 89 MCH 29.7 MCHC 33.6 RDW 16.6 H Plt Count 460 H Seg Neutrophils % 53.8 Lymphocytes % 35.4 Monocytes % 7.7 Eosinophils % 1.9 Basophils % 1.2 Absolute Neutrophils 4.5 Absolute Lymphocytes 3.0 Absolute Monocytes 0.6 Absolute Eosinophils 0.2 Absolute Basophils 0.1 Sodium 138.5 Potassium 4.3 Chloride 101 Carbon Dioxide 25 Anion Gap 13 BUN 10 Creatinine 0.89 Est GFR ( Amer) > 60 Est GFR (Non-Af Amer) > 60 Glucose 95 Calcium 10.6 H Total Bilirubin 0.4 Direct Bilirubin 0.4 Neonat Total Bilirubin Not Reportable Neonat Direct Bilirubin Not Reportable Neonat Indirect Bili Not Reportable AST 31 ALT 31 Alkaline Phosphatase 70 Total Protein 8.1 Albumin 4.9 Lipase 171.1 Abdomen Ultrasound 11/16/18 20:30 IMPRESSION: Fatty infiltrative change to the liver. Remainder is unremarkable copyright 2011 [employer]- All Rights Reserved KUB X-Ray 11/16/18 20:32 IMPRESSION: No evidence for bowel obstruction. - Vital Signs Vital signs: Temp Pulse Resp BP Pulse Ox 97.9 F 127 H 18 148/77 H 99 11/16/18 19:16 11/16/18 19:16 11/16/18 19:16 11/16/18 19:16 11/16/18 19:16 - Laboratory Result Diagrams: 11/16/18 21:03 11/16/18 21:03 Laboratory results interpreted by me: 11/16/18 11/16/18 21:03 21:03 RDW 16.6 H Plt Count 460 H Calcium 10.6 H Discharge - Discharge Clinical Impression: RUQ abdominal pain, Fatty liver, Tachycardia Condition: Stable Disposition: HOME, SELF-CARE Instructions: Gallbladder Disease ([facility]) Additional Instructions: Please return to the emergency department if you have any worsening, or concern of your symptoms. Please return to the emergency department if you develop chest pain, difficulty breathing, severe abdominal pain, or ongoing vomiting. Please follow-up with your primary care physician in 2-3 days and any other recommended physicians. If prescribed, take all medications as directed. If you have any questions or concerns do not hesitate to return the emergency department for evaluation. Prescriptions: Atorvastatin Calcium [Lipitor] 80 mg PO DAILY #30 tablet Clopidogrel Bisulfate [Plavix 75 mg Tablet] 75 mg PO DAILY #30 tablet Gabapentin 600 mg PO TID #90 tablet Losartan Potassium [Cozaar] 25 mg PO DAILY #30 tablet Metoprolol Succinate 100 mg PO DAILY #30 tab.er.24h Pantoprazole Sodium [Protonix] 40 mg PO DAILY #30 tablet.dr Forms: Smoking Cessation Education Referrals: [facility] [Provider Group] - Follow up as needed [facility] [Provider Group] - Follow up in 3-5 days KATHY MARTIN MD [ACTIVE STAFF] - Follow up as needed
[2018-11-17] MEDS ORDERED: PANTOPRAZOLE SODIUM 40 MG TABLET.DR PO ONE (00:36)
[2018-11-17] MEDS ORDERED: METOPROLOL SUCCINATE 50 MG TAB.SR.24H PO ONE (00:36)
[2018-11-17 01:35] VITALS: BP 142/72
== END 2018-11-17 01:33 | disposition home or self-care (01) ==
LOC: ER 19:10
DX: R10.11 Right upper quadrant pain (principal); K76.0 Fatty (change of) liver, not elsewhere classified; R00.0 Tachycardia, unspecified; R06.02 Shortness of breath; M54.9 Dorsalgia, unspecified; M25.511 Pain in right shoulder; R11.0 Nausea; I25.10 Atherosclerotic heart disease of native coronary artery without angina pectoris; I10 Essential (primary) hypertension; F17.200 Nicotine dependence, unspecified, uncomplicated
CPT/HCPCS: 99284; 36415; 83690; 85025; 80053; 74018; 76705; J3490

== ENCOUNTER 2018-12-20 16:15 | Emergency (ER) | payer OTHER ==
--- NOTE | 2018-12-20 16:47 | ER Document Report ---
ED Medical Screen (RME) - General Chief Complaint: Abdominal Pain Stated Complaint: RIGHT FLANK PAIN Time Seen by Provider: 12/20/18 16:43 Mode of Arrival: Wheelchair Information source: Patient Notes: 4 I have greeted and performed a rapid initial assessment of this patient. A comprehensive ED assessment and evaluation of the patient, analysis of test results and completion of medical decision making process will be conducted by an additional ED providers. 3-year-old female presented to ED for right upper quadrant abdominal pain. She has had this frequently recently. She has had mul tiple labs and ultrasound and has not shown cholecystitis. She has been informed that she needs to go outpatient to get seen to get the gallbladder removed if the pain continues. She states she does not have the insurance of the money to go and have a gallbladder surgery but she continues to have the pain when she eats certain foods. She states today she ate eggs in the morning and she has had the pain all day. She is not nausea and vomiting. We will repeat labs and ultrasound and has seen by 1 of the providers in the back. Will give Toradol and Zofran IV. I have greeted and performed a rapid initial assessment of this patient. A comprehensive ED assessment and evaluation of the patient, analysis of test results and completion of medical decision making process will be conducted by an additional ED providers. TRAVEL OUTSIDE OF THE [place] IN LAST 30 DAYS: No - Related Data Allergies/Adverse Reactions: Sulfa (Sulfonamide Antibiotics) Allergy (Verified 12/20/18 16:16) Past Medical History - Past Medical History Cardiac Medical History: Reports: Hx Heart Attack, Hx Hypercholesterolemia, Hx Hypertension Renal/ Medical History: Denies: Hx Peritoneal Dialysis Psychiatric Medical History: Denies: Hx Depression Past Surgical History: Reports: Hx Cardiac Surgery, Hx Coronary Stent - November 2017, Hx Orthopedic Surgery Physical Exam - Vital signs Vitals: Temp Pulse Resp BP Pulse Ox 98.7 F 124 H 18 157/116 H 97 12/20/18 16:20 12/20/18 16:20 12/20/18 16:20 12/20/18 16:20 12/20/18 16:20 Course - Vital Signs Vital signs: Temp Pulse Resp BP Pulse Ox 98.7 F 124 H 18 157/116 H 97 12/20/18 16:20 12/20/18 16:20 12/20/18 16:20 12/20/18 16:20 12/20/18 16:20
[2018-12-20] MEDS ORDERED: ONDANSETRON HCL INJ/PF 4 MG/2 ML SDV IV ONE (16:48)
[2018-12-20] MEDS ORDERED: KETOROLAC TROMETHAMINE INJ/PF 30 MG/1 ML SDV IV ONE (16:48)
[2018-12-20 17:37] LABS: ABSOLUTE EOSINOPHILS # (AUTO) 0.2 10^3/uL (0.0-0.6); ABSOLUTE LYMPHOCYTES (AUTO) 3.2 10^3/uL (0.5-4.7); ABSOLUTE MONOCYTES (AUTO) 0.5 10^3/uL (0.1-1.4); ABSOLUTE NEUT (AUTO) 3.4 10^3/uL (1.7-8.2); BASOPHILS % (AUTO) 0.3 % (0-2); EOSINOPHILS % (AUTO) 3.1 % (0-6); HEMATOCRIT 39.8 % (36.0-47.0); HEMOGLOBIN 13.7 g/dL (12.0-15.5); LYMPHOCYTES % (AUTO) 43.4 % (13-45); MEAN CORPUSCULAR HGB CONC 34.4 g/dL (32.0-36.0); MEAN CORPUSCULAR VOLUME 90 fl (80-97); PLATELET COUNT 421 10^3/uL (150-450); RED BLOOD COUNT 4.42 10^6/uL (3.72-5.28); RED CELL DISTRIBUTION WIDTH 15.7 % (11.5-14.0); SEGMENTED NEUTROPHILS % (AUTO) 46.2 % (42-78); TOTAL CELLS COUNTED % (AUTO) 100 %; WHITE BLOOD COUNT 7.3 10^3/uL (4.0-10.5)
[2018-12-20 17:56] LABS: ALBUMIN 4.7 g/dL (3.5-5.0); ALKALINE PHOSPHATASE 64 U/L (38-126); ANION GAP 11 (5-19); ASPARTATE AMINO TRANSFERASE 30 U/L (14-36); BILIRUBIN,DIRECT 0.2 mg/dL (0.0-0.4); BILIRUBIN,TOTAL 0.2 mg/dL (0.2-1.3); BLOOD UREA NITROGEN 6 mg/dL (7-20); CALCIUM 10.5 mg/dL (8.4-10.2); CARBON DIOXIDE 22 mmol/L (22-30); CHLORIDE 104 mmol/L (98-107); GLUCOSE 97 mg/dL (75-110); POTASSIUM 4.6 mmol/L (3.6-5.0); TOTAL PROTEIN 7.7 g/dL (6.3-8.2)
--- NOTE | 2018-12-20 18:48 | RADIOLOGY REPORT (SQ) ---
EXAM DESCRIPTION: U/S ABDOMEN LTD W/DOPPLER COMPLETED DATE/TIME: 12/20/2018 6:37 pm REASON FOR STUDY: Right upper quadrant abdominal pain COMPARISON: 11/16/2018 TECHNIQUE: Dynamic and static grayscale images acquired of the abdomen and recorded on PACS. Gulshano sascha selected color Doppler and spectral images recorded. LIMITATIONS: None. FINDINGS: PANCREAS: Obscured by overlying bowel gas. LIVER: No masses. Increased echogenicity. Echotexture normal. LIVER VASCULATURE: Normal directional flow of the main portal vein and hepatic veins. GALLBLADDER: No stones. Normal wall thickness. No pericholecystic fluid. ULTRASOUND-DETECTED SINGH'S SIGN: Negative. INTRAHEPATIC DUCTS AND COMMON DUCT: CBD and intrahepatic ducts normal caliber. No filling defects. INFERIOR VENA CAVA: Normal flow. AORTA: No aneurysm. RIGHT KIDNEY: Normal size. Normal echogenicity. No solid or suspicious masses. No hydronephrosis. No calcifications. PERITONEAL AND RIGHT PLEURAL SPACE: No ascites or effusions. OTHER: No other significant findings. IMPRESSION: 1. Hepatic steatosis. 2. No acute ultrasound abnormality of the right upper quadrant to explain pain. Consider CT or MRI to further evaluate unexplained abdominal pain. TECHNICAL DOCUMENTATION: JOB ID: [id number] [email or web address]- All Rights Reserved Reading location - IP/workstation name: [email or web address]
[2018-12-20 20:30] LABS: APPEARANCE,URINE CLOUDY; BILIRUBIN,URINE NEGATIVE (NEGATIVE); COLOR,URINE YELLOW; GLUCOSE, URINE NEGATIVE (NEGATIVE); KETONES,URINE NEGATIVE (NEGATIVE); LEUKOCYTE ESTERASE,URINE NEGATIVE (NEGATIVE); NITRITE,URINE NEGATIVE (NEGATIVE); PROTEIN,URINE NEGATIVE (NEGATIVE); URINE SPECIFIC GRAVITY 1.021; UROBILINOGEN,URINE NEGATIVE mg/dL (<2.0)
[2018-12-20] MEDS ORDERED: MORPHINE SULFATE 10 MG/ML INJ IV ONE (21:38)
[2018-12-20] MEDS ORDERED: NORMAL SALINE 1000 ML 1,000 ML IV ONE (21:38)
--- NOTE | 2018-12-20 22:50 | RADIOLOGY REPORT (SQ) ---
EXAM DESCRIPTION: XR CHEST 2 VIEWS COMPLETED DATE/TME: 12/20/2018 21:20 CLINICAL HISTORY: 43 years, Female, epigastric pain, tachy COMPARISON: 08/05/2018. NUMBER OF VIEWS: 2 TECHNIQUE: Two views PA and lateral of the chest were obtained. LIMITATIONS: None. FINDINGS: Unremarkable cardiac and mediastinal silhouette. Heart size is normal. Lungs are clear without focal opacity, pneumothorax or pleural effusions. The visualized bones are within normal limits. IMPRESSION: No acute cardiopulmonary abnormalities. copyright 2010 [employer]- All Rights Reserved
--- NOTE | 2018-12-20 23:20 | RADIOLOGY REPORT (SQ) ---
CT abdomen and pelvis with contrast on 12/20/2018 at 10:22 PM CLINICAL INDICATION: Right upper quadrant pain, vomiting, diarrhea TECHNIQUE: Multiple axial images are obtained throughout the abdomen and pelvis following the administration of IV contrast, 80 mL of Omnipaque 350 contrast was administered intravenously without complication. This exam was performed according to our departmental dose-optimization program, which includes automated exposure control, adjustment of the mA and/or kV according to patient size and/or use of iterative reconstruction technique. Total DLP is 2099.39 mGy*cm. COMPARISON: CT chest and upper abdomen from 10/06/2018 FINDINGS: Abdomen: The lung bases are clear. There is fatty infiltration of the liver. There is a partially duplicated right renal collecting system that fuses into one mid and distal right ureter. There is mild right renal cortical scarring. The solid abdominal organs are otherwise unremarkable. Mild vascular calcifications are noted. There is no abdominal adenopathy. There is no free fluid or free air within the abdomen. The abdominal portion of the GI tract is unremarkable. Pelvis: There is no free fluid in the pelvis. Pelvic organs appear unremarkable by CT. Pelvic portion of the GI tract including the appendix is unremarkable. There is no pelvic adenopathy. Postsurgical and degenerative changes are noted in the lumbar spine. IMPRESSION: 1. Fatty infiltration of the liver. 2. No acute abnormality.
--- NOTE | 2018-12-20 23:32 | ER Document Report ---
HPI - HPI Time Seen by Provider: 12/20/18 16:43 Pain Level: 4 Context: 43 Yr old female patient, with the listed pmh, here for abdominal pain x days. No abdominal surgeries. No history of ovarian cysts, fibroids, endometriosis, or renal stones. Normal bowel movements. No UTI symptoms. No URI symptoms. No recent antibiotics or steroids. No history of diabetes or asthma. No vaginal discharge/complaints/lesions or concerns for STDs and does not want a pelvic exam. No ripping or tearing sensation. Hasn't taken anything for her symptoms. No excessive NSAID use, Tylenol use, or EtOH. No prior history of gallbladder disease, pancreatitis, ulcers, GI bleed, GERD, IBS, Crohn's, or UC. no change in color or caliber or stool. no blood thinners. no fall or trauma. no other associated sx. - ROS Systems Reviewed and Negative: Yes All other systems reviewed and negative - To include 10 systems, unless mentioned in the hpi. - REPRODUCTIVE Reproductive: DENIES: : Past Medical History - General Information source: Patient - Social History Smoking Status: Current Every Day Smoker Chew tobacco use (# tins/day): No Frequency of alcohol use: Rare Drug Abuse: None Family History: CAD, COPD, DM Patient has suicidal ideation: No Patient has homicidal ideation: No - Past Medical History Cardiac Medical History: Reports: Hx Heart Attack, Hx Hypercholesterolemia, Hx Hypertension Renal/ Medical History: Denies: Hx Peritoneal Dialysis Psychiatric Medical History: Denies: Hx Depression Past Surgical History: Reports: Hx Cardiac Surgery, Hx Coronary Stent - November 2017, Hx Orthopedic Surgery Vertical Provider Document - CONSTITUTIONAL Notes: >>>> PHYSICAL_EXAM: GENERAL_APPEARANCE: well_nourished, alert, cooperative, no_acute_distress, no_obvious_discomfort. Pleasant, female, smiling, speaking in full sentences, in no sign of pain or resp distress, easily sitting up VITALS: reviewed, see vital signs table. HEAD: normocephalic, atraumatic. no hodge signs. no raccoon eyes. EYES: PERRL, EOMI, (-)scleral icterus. NOSE: no_nasal_discharge. MOUTH: (-)decreased moisture. THROAT: no_tonsilar_inflammation/hypertrophy/exudate NECK: supple, no_neck_tenderness, full rom. full strength. no meningeal signs. no sign of central cord syndrome BACK: no midline_back_tenderness. no step offs or deformities CHEST_WALL: no_chest_tenderness. LUNGS: no_wheezing, (-)accessory muscle use, good air exchange bilateral. HEART: normal_rate, normal_rhythm, ABDOMEN: normal_BS, soft, abdomen-diffuse, non-tender, (-)guarding, (- )rebound, no distension or peritoneal signs. neg murphys. neg mcburneys. no cva tenderness. neg heel strike. neg obturator. neg psoas. neg rovsign. GENITALS: no_ulcers_or_lesions on the genitals, no_lacerations on the genitals, PELVIC: (-)tender uterus, left_and_right adnexa non-tender, (-)CMT, (-)active bleeding, (-)discharge, no_tenderness no cervcicitis, normal os, pt consented to exam. exam without incident. ed nurse __ at bedside during entire exam as assistant food service manager. RECTAL: deferred EXTREMITIES: strength 5/5 in all_extremities, good pulses in all_extremities, no_edema, no_swelling\tenderness. full rom. normal gait. good hand consulting project director. brisk cap refill. SKIN: warm, dry, good_color, no_rash. no grossly visible overlying skin changes to suggest trauma NEURO: motor_intact, sensory_intact. cranial nerves 2-12 intact, cerebellar fxn intact MENTAL_STATUS: normal_affect, speech_clear, oriented_X_3, responds_appropriately to questions. - INFECTION CONTROL TRAVEL OUTSIDE OF THE [place] IN LAST 30 DAYS: No Course - Re-evaluation Re-evalutation: 12/20/18 23:29 Pt here for . advised to f/u with pcp in 1-2 days. return for any worsening symptoms. vss. well appearing. satting well on ra. neurononfocal. pt understands and agrees to plan. On reexam, pt improved with tx listed. remained stable. nontoxic. well appearing. pain controlled. tolerating po. requesting to go home. case discussed with ER Attending, , who directed and agrees with plan of care and advised no further workup indicated at this time and pt is stable for dc home with close f/u with pcp/specialist. Documentation achieved through voice recording which may lead to some occasional accidental typographical errors. Extensive efforts have been made to proof read documentation to make sure these are the least as possible. 12/20/18 23:30 Category Date Time Status EKG Documentation STAT Care 12/20/18 21:19 Active CHEST 2 VIEWS [RAD] Stat Exams 12/20/18 21:[address] ABD/PELVIS WITH IV ONLY [CT] Stat Exams 12/20/18 21:37 Completed U/S ABDOMEN LTD W/DOPPLER [US] Stat Exams 12/20/18 16:47 Completed CBC WITH DIFF [HEME] Stat Lab 12/20/18 17:20 Completed COMPREHENSIVE METABOLIC PANEL [CHEM] Stat Lab 12/20/18 17:20 Completed HCG-QUAL, SERUM [CHEM] Stat Lab 12/20/18 17:20 Completed LIPASE [CHEM] Stat Lab 12/20/18 17:20 Completed URINALYSIS [URIN] Stat Lab 12/20/18 17:20 Completed URINE CULTURE [MC] Stat Lab 12/20/18 17:20 Received Ketorolac Tromethamine [Toradol Inj/Pf 30 mg/1 ml Sdv] Med 12/20/18 16:48 Discontinued 30 mg IV NOW ONE Morphine Sulfate [Morphine 10 mg/ml Inj] Med 12/20/18 21:38 Discontinued 4 mg IV NOW ONE Normal Saline 1000 ml [NaCl 0.9% 1000 ml IV Soln] 1,000 Med 12/20/18 21:38 Discontinued ml IV BOLUS Ondansetron HCl/Pf [Zofran Inj/Pf 4 mg/2 ml Sdv] Med 12/20/18 16:48 Discontinued 8 mg IV NOW ONE EKG ER ONLY [ER] Stat Oth 12/20/18 Active - Vital Signs Vital signs: Temp Pulse Resp BP Pulse Ox 98.4 F 89 18 128/79 H 97 12/20/18 21:27 12/20/18 21:27 12/20/18 16:20 12/20/18 21:27 12/20/18 21:27 12/20/18 23:30 Temp Pulse Resp BP Pulse Ox 12/20/18 21:27 98.4 F 89 128/79 H 97 12/20/18 16:20 98.7 F 124 H 18 157/116 H 97 - Laboratory Result Diagrams: 12/20/18 17:20 12/20/18 17:20 Laboratory results interpreted by me: 12/20/18 12/20/18 17:20 17:20 RDW 15.7 H Sodium 136.9 L BUN 6 L Calcium 10.5 H 12/20/18 23:30 Labs- Entire Visit 12/20/18 12/20/18 12/20/18 17:20 17:20 17:20 WBC 7.3 RBC 4.42 Hgb 13.7 Hct 39.8 MCV 90 MCH 31.0 MCHC 34.4 RDW 15.7 H Plt Count 421 Lymph % (Auto) 43.4 [place] % (Auto) 7.0 Eos % (Auto) 3.1 Baso % (Auto) 0.3 Absolute Neuts (auto) 3.4 Absolute Lymphs (auto) 3.2 Absolute Monos (auto) 0.5 Absolute Eos (auto) 0.2 Absolute Basos (auto) 0.0 Seg Neutrophils % 46.2 Sodium 136.9 L Potassium 4.6 Chloride 104 Carbon Dioxide 22 Anion Gap 11 BUN 6 L Creatinine 0.81 Est GFR ( Amer) > 60 Est GFR (MDRD) Non-Af > 60 Glucose 97 Calcium 10.5 H Total Bilirubin 0.2 Direct Bilirubin 0.2 Neonat Total Bilirubin Not Reportable Neonat Direct Bilirubin Not Reportable Neonat Indirect Bili Not Reportable AST 30 ALT 28 Alkaline Phosphatase 64 Total Protein 7.7 Albumin 4.7 Lipase 167.2 Serum HCG, Qual Urine Color YELLOW Urine Appearance CLOUDY Urine pH 7.0 Ur Specific [place] 1.021 Urine Protein NEGATIVE Urine Glucose (UA) NEGATIVE Urine Ketones NEGATIVE Urine Blood NEGATIVE Urine Nitrite NEGATIVE Urine Bilirubin NEGATIVE Urine Urobilinogen NEGATIVE Ur Leukocyte Esterase NEGATIVE Urine WBC (Auto) 5 Urine RBC (Auto) 2 Squamous Epi Cells Auto 47 Urine Mucus (Auto) RARE Urine Ascorbic Acid NEGATIVE 12/20/18 17:20 WBC RBC Hgb Hct MCV MCH MCHC RDW Plt Count Lymph % (Auto) [place] % (Auto) Eos % (Auto) Baso % (Auto) Absolute Neuts (auto) Absolute Lymphs (auto) Absolute Monos (auto) Absolute Eos (auto) Absolute Basos (auto) Seg Neutrophils % Sodium Potassium Chloride Carbon Dioxide Anion Gap BUN Creatinine Est GFR ( Amer) Est GFR (MDRD) Non-Af Glucose Calcium Total Bilirubin Direct Bilirubin Neonat Total Bilirubin Neonat Direct Bilirubin Neonat Indirect Bili AST ALT Alkaline Phosphatase Total Protein Albumin Lipase Serum HCG, Qual NEGATIVE Urine Color Urine Appearance Urine pH Ur Specific [place] Urine Protein Urine Glucose (UA) Urine Ketones Urine Blood Urine Nitrite Urine Bilirubin Urine Urobilinogen Ur Leukocyte Esterase Urine WBC (Auto) Urine RBC (Auto) Squamous Epi Cells Auto Urine Mucus (Auto) Urine Ascorbic Acid - Diagnostic Test Radiology reviewed: Image reviewed, Reports reviewed Radiology results interpreted by me: 12/20/18 23:30 Abdomen Ultrasound 12/20/18 16:47 IMPRESSION: 1. Hepatic steatosis. 2. No acute ultrasound abnormality of the right upper quadrant to explain pain. Consider CT or MRI to further evaluate unexplained abdominal pain. Chest X-Ray 12/20/18 21:20 IMPRESSION: No acute cardiopulmonary abnormalities. copyright 2010 [employer]- All Rights Reserved Abdomen/Pelvis CT 12/20/18 21:37 IMPRESSION: 1. Fatty infiltration of the liver. 2. No acute abnormality. - EKG Interpretation by Me EKG shows normal: Sinus rhythm Rate: Normal Rhythm: NSR - 75 bpm, no STEMI, reviewed by Dr. Foss When compared to previous EKG there are: No significant change Discharge - Discharge Clinical Impression: Abdominal pain Qualifiers: Abdominal location: unspecified location Qualified Code(s): R10.9 - Unspecified abdominal pain Diarrhea Qualifiers: Diarrhea type: unspecified type Qualified Code(s): R19.7 - Diarrhea, unspecified Condition: Good Disposition: HOME, SELF-CARE Instructions: Abdominal Pain ([facility]), Gallbladder Disease ([facility]) Additional Instructions: Follow-up with PCP/GI in 1 to 2 days. Return for any worsening symptoms. Do not work, drive, operate machinery, or take Tylenol with the pain medication. Take the medication as prescribed. Drink plenty fluids. [place] diet. We will call you with any abnormal results that require change in plan of care. you can continue to take the [id number] acid reflux medication as discussed. Prescriptions: Hydrocodone/Acetaminophen [[place] 5-325 mg Tablet] 1 tab PO Q6HP PRN #14 tablet PRN Reason: For Pain Scale 4-5 Ondansetron HCl [Zofran 4 mg Tablet] 1 tab PO Q8HP PRN #14 tablet PRN Reason: For Nausea/Vomiting Referrals: BEV LITTLE MD [ACTIVE STAFF] - Follow up in 3-5 days
[2018-12-21 00:41] VITALS: BP 146/91
--- NOTE | 2018-12-21 07:55 | EKG REPORT ---
SEVERITY:- NORMAL ECG - SINUS RHYTHM : Confirmed by: Gustavo Campoverde 21-Dec-2018 07:54:15
== END 2018-12-21 00:07 | disposition home or self-care (01) ==
LOC: ER 16:15
DX: R19.7 Diarrhea, unspecified (principal); R10.9 Unspecified abdominal pain; F17.200 Nicotine dependence, unspecified, uncomplicated
CPT/HCPCS: 93005; 99284; 96361; 96374; 96375; 36415; 87086; 83690; 84703; 85025; 80053; 81001; 71046; 76705; 93976; 74177; 93010; J1885; J2270; J2405; J7030

== ENCOUNTER 2019-05-18 14:34 | Emergency (ER) | payer OTHER ==
[2019-05-18] MEDS ORDERED: ASPIRIN 81 MG TABLET, CHEWABLE PO ONE (15:05)
--- NOTE | 2019-05-18 15:08 | ER Document Report ---
ED Medical Screen (RME) - General Chief Complaint: Chest Pain Stated Complaint: CHEST PAIN Time Seen by Provider: 05/18/19 15:01 Notes: HPI: 43-year-old female who smokes presenting for chest pain that began several hours ago in the lower midsternal region. Patient reports shortness of breath with this. Pain is sharp in nature seems to go into the neck and back. Patient with prior history of myocardial infarction resulting in 2 stents in 2018. States that she stopped taking all of her cardiac medications approximately 1 year ago due to costs and did not follow back up with her salad counter attendant about this I have greeted and performed a rapid initial assessment of this patient. A comprehensive ED assessment and evaluation of the patient, analysis of test results and completion of the medical decision making process will be conducted by additional ED providers PHYSICAL EXAMINATION: GENERAL: Ill-appearing, well-nourished and in moderate acute distress. HEAD: Atraumatic, normocephalic. EYES: sclera anicteric, conjunctiva are normal. ENT: Moist mucous membranes. NECK: Normal range of motion LUNGS: Slightly increased work of breathing, mild dyspnea with speaking. Lung sounds decreased but otherwise clear to auscultation HEART: 2+ radial pulses bilaterally, mild tachycardia ABD: limited by positioning for exam in triage. Obese, no tenderness in the epigastric region on palpation EXTREMITIES: no pitting or edema. No cyanosis. NEUROLOGICAL: No focal neurological deficits. Moves all extremities spontaneously and on command. PSYCH: Normal mood, normal affect. SKIN: Warm, Dry, normal turgor, no rashes or lesions noted. TRAVEL OUTSIDE OF THE [place] IN LAST 30 DAYS: No - Related Data Allergies/Adverse Reactions: Sulfa (Sulfonamide Antibiotics) Allergy (Verified 12/20/18 16:16) Past Medical History - Social History Frequency of alcohol use: None Drug Abuse: None - Past Medical History Cardiac Medical History: Reports: Hx Heart Attack, Hx Hypercholesterolemia, Hx Hypertension Renal/ Medical History: Denies: Hx Peritoneal Dialysis Psychiatric Medical History: Denies: Hx Depression Past Surgical History: Reports: Hx Cardiac Surgery, Hx Coronary Stent - November 2017, Hx Orthopedic Surgery Physical Exam - Vital signs Vitals: Temp Pulse Resp BP Pulse Ox 98.4 F 115 H 20 145/94 H 100 05/18/19 14:43 05/18/19 14:43 05/18/19 14:43 05/18/19 14:43 05/18/19 14:43 Course - Vital Signs Vital signs: Temp Pulse Resp BP Pulse Ox 98.4 F 115 H 20 145/94 H 100 05/18/19 14:43 05/18/19 14:43 05/18/19 14:43 05/18/19 14:43 05/18/19 14:43
[2019-05-18] MEDS ORDERED: MAG HYDROX/AL HYDROX/SIMETH SUSP 30 ML UDCUP PO ONE (16:06)
[2019-05-18] MEDS ORDERED: LIDOCAINE 2% VISCOUS SOLN 15 ML UDCUP PO ONE (16:06)
--- NOTE | 2019-05-18 16:06 | ER Document Report ---
ED Cardiac - General Chief Complaint: Chest Pain Stated Complaint: CHEST PAIN Time Seen by Provider: 05/18/19 15:50 Primary Care Provider: [facility] [Provider Group] - Follow up tomorrow DEIRDRE EASLEY MD [ACTIVE STAFF] - Follow up as needed MARYANNE MARCOS MD [ACTIVE STAFF] - Follow up as needed Mode of Arrival: Ambulatory Information source: Patient Notes: Patient presents complaining of midsternal chest pain and epigastric pain that started around 1 PM today. Patient does report shortness of breath with it. Patient describes pain as constant and sharp in nature. Patient denies any cough cold symptoms nausea or vomiting. Patient does complain of some left shoulder pain and right lateral neck discomfort. Patient does have a history of [place], hypertension and dyslipidemia. Patient states she has been off of all of her medications for the past year due to lack of insurance. Patient denies any recent road trips or immobilization. TRAVEL OUTSIDE OF THE [place] IN LAST 30 DAYS: No - HPI Patient complains to provider of: Chest pain, Shortness of breath Chest pain location: Substernal, Other - epigsatric Quality of pain: Sharp Pain level currently: 4 Cardiac risk factors: Hypertension, Smoker, Hx [place] Positive cardiac history: Yes Associated symptoms: Abdominal pain, Shortness of breath. denies: Palpitations Exacerbated by: Denies Relieved by: Nothing Similar symptoms previously: Yes Recently seen / treated by doctor: No - Related Data Allergies/Adverse Reactions: Sulfa (Sulfonamide Antibiotics) Allergy (Verified 12/20/18 16:16) Past Medical History - General Information source: Patient - Social History Smoking Status: Current Every Day Smoker Frequency of alcohol use: None Drug Abuse: None Occupation: none Family History: CAD, COPD, DM Patient has suicidal ideation: No Patient has homicidal ideation: No - Past Medical History Cardiac Medical History: Reports: Hx Heart Attack, Hx Hypercholesterolemia, Hx Hypertension Renal/ Medical History: Denies: Hx Peritoneal Dialysis Psychiatric Medical History: Denies: Hx Depression Past Surgical History: Reports: Hx Cardiac Surgery, Hx Coronary Stent - November 2017, Hx Orthopedic Surgery Review of Systems - Review of Systems Constitutional: No symptoms reported. denies: Fever, Recent illness EENT: No symptoms reported Cardiovascular: Chest pain Respiratory: Short of breath. denies: Cough Gastrointestinal: Abdominal pain. denies: Nausea, Vomiting Genitourinary: No symptoms reported Female Genitourinary: No symptoms reported Musculoskeletal: No symptoms reported. denies: Leg swelling Skin: No symptoms reported Hematologic/Lymphatic: No symptoms reported Neurological/Psychological: No symptoms reported Physical Exam - Vital signs Vitals: Temp Pulse Resp BP Pulse Ox 98.4 F 115 H 20 145/94 H 100 05/18/19 14:43 05/18/19 14:43 05/18/19 14:43 05/18/19 14:43 05/18/19 14:43 - General General appearance: Appears well, Alert, Anxious In distress: None - HEENT Head: Normocephalic, Atraumatic Eyes: Normal Conjunctiva: Normal Nasal: Normal Mouth/Lips: Normal Mucous membranes: Normal Neck: Normal, Supple. No: Lymphadenopathy, Meningismus - Respiratory Respiratory status: No respiratory distress Chest status: Tender, Pain with deep breathing Breath sounds: Normal. No: Nonproductive cough, Rales, Rhonchi, Stridor, Wheezing Chest palpation: Tender - Cardiovascular Rhythm: Regular Heart sounds: S1 appreciated, S2 appreciated Murmur: No - Abdominal Inspection: Obese Distension: No distension Bowel sounds: Normal Tenderness: Tender - epigastric Organomegaly: No organomegaly - Back Back: Normal, Nontender. No: CVA tenderness - Extremities General upper extremity: Normal inspection, Normal strength General lower extremity: Normal inspection, Normal strength. No: Edema - Neurological Neuro grossly intact: Yes Cognition: Normal Leigha Coma Scale Eye Opening: Spontaneous [place] Coma Scale Verbal: Oriented [place] Coma Scale Motor: Obeys Commands [place] Coma Scale Total: 15 - Psychological Associated symptoms: Normal affect, Normal mood - Skin Skin Temperature: Warm Skin Moisture: Dry Skin Color: Normal Course - Re-evaluation Re-evalutation: 05/18/19 17:05 Patient reports that pain symptoms have resolved after the GI cocktail was given. We will repeat troponin given patient's cardiac risk factors as well as add on a d-dimer given initial tachycardia and dyspnea. 05/18/19 20:[address] ortiz regarding patient presentation and diagnostic evaluation. Agrees with discharge plan of care at this time. Patient with no elevation in delta troponin. Chest x-ray reviewed without any acute findings. Patient is asymptomatic with stable vital signs. Presentation of chest pain in an otherwise well appearing patient. Low clinical suspicion for ACS given clinical history, exam, EKG without ST elevations or depressions, and negative initial troponin. HEART score less than or equal to 3. PE also seems unlikely given clinical history, and negative d-dimer. CXR without evidence of pneumothorax or pneumonia. No widened mediastinum. Aortic dissection also seems unlikely. Chest pain in a patient without evidence of cardiac or other serious etiology on workup today. I discussed with patient that, based on their age, risk factors and emergency department testing today, the likelihood that their symptoms are related to a heart attack is very low. The patient demonstrates decision making capacity and has verbalized an understanding of these risks to me. Based on this, the patient has chosen to follow-up as an outpatient. Usual chest pain return precautions reviewed. The patient states understanding and agreement with this plan. - Vital Signs Vital signs: Temp Pulse Resp BP Pulse Ox 98.4 F 96 21 H 130/92 H 99 05/18/19 20:30 05/18/19 20:30 05/18/19 20:30 05/18/19 20:30 05/18/19 20:30 - Laboratory Result Diagrams: 05/18/19 15:48 05/18/19 15:48 Laboratory results interpreted by me: 05/18/19 05/18/19 15:48 15:48 Plt Count 472 H Sodium 135.0 L Labs- Entire Visit 05/18/19 05/18/19 05/18/19 15:48 15:48 15:48 WBC 7.4 RBC 4.33 Hgb 14.1 Hct 40.7 MCV 94 MCH 32.5 MCHC 34.5 RDW 13.7 Plt Count 472 H Lymph % (Auto) 35.5 Early % (Auto) 7.2 Eos % (Auto) 2.2 Baso % (Auto) 0.8 Absolute Neuts (auto) 4.0 Absolute Lymphs (auto) 2.6 Absolute Monos (auto) 0.5 Absolute Eos (auto) 0.2 Absolute Basos (auto) 0.1 Seg Neutrophils % 54.3 D-Dimer Sodium 135.0 L Potassium 4.9 Chloride 102 Carbon Dioxide 24 Anion Gap 9 BUN 9 Creatinine 1.01 Est GFR ( Amer) > 60 Est GFR (MDRD) Non-Af > 60 Glucose 93 Calcium 9.9 Total Bilirubin 0.4 Direct Bilirubin 0.1 Neonat Total Bilirubin Not Reportable Neonat Direct Bilirubin Not Reportable Neonat Indirect Bili Not Reportable AST 32 ALT 26 Alkaline Phosphatase 74 Troponin I < 0.012 Total Protein 7.5 Albumin 4.4 Lipase 05/18/19 05/18/19 05/18/19 15:48 17:15 19:10 WBC RBC Hgb Hct MCV MCH MCHC RDW Plt Count Lymph % (Auto) Early % (Auto) Eos % (Auto) Baso % (Auto) Absolute Neuts (auto) Absolute Lymphs (auto) Absolute Monos (auto) Absolute Eos (auto) Absolute Basos (auto) Seg Neutrophils % D-Dimer 0.27 Sodium Potassium Chloride Carbon Dioxide Anion Gap BUN Creatinine Est GFR ( Amer) Est GFR (MDRD) Non-Af Glucose Calcium Total Bilirubin Direct Bilirubin Neonat Total Bilirubin Neonat Direct Bilirubin Neonat Indirect Bili AST ALT Alkaline Phosphatase Troponin I < 0.012 Total Protein Albumin Lipase 202.4 - Diagnostic Test Radiology reviewed: Reports reviewed - EKG Interpretation by Me EKG shows normal: Sinus rhythm Rate: Tachycardia Additional EKG results interpreted by me: 05/18/19 20:[address] elevation, QTc 454 Discharge - Discharge Clinical Impression: Chest pain Qualifiers: Chest pain type: unspecified Qualified Code(s): R07.9 - Chest pain, unspecified GERD (gastroesophageal reflux disease) Qualifiers: Esophagitis presence: esophagitis presence not specified Qualified Code(s): K21.9 - Gastro-esophageal reflux disease without esophagitis Condition: Stable Disposition: HOME, SELF-CARE Instructions: Chest Pain of Unclear Cause ([facility]), Reflux Disease (GERD) ([facility]) Additional Instructions: Return immediately for any new or worsening symptoms Followup with your primary care provider, call tomorrow to make a followup appointment You were seen today for chest pain. The exact cause of your pain is unclear. However, based on your cardiac enzyme testing, chest x-ray, and EKG it does not appear that it is from an immediately life-threatening cause at this time. Although your testing here is normal is critical that you follow-up with your primary care physician for continued evaluation of this chest pain and possible stress testing. I recommended you see your physician within the next 24-48 hours to be evaluated for consideration of a stress test. Please return to emergency department immediately if you have worsening of your chest pain, shortness of breath, vomiting, become unable to exert yourself due to pain or difficulty breathing, you pass out, or have any pain that radiates into your arms, jaw, or back. Please also return if you have any additional symptoms that are concerning to you. Prescriptions: Sucralfate [Carafate 1 gm Tablet] 1 gm PO ACHS #40 tablet Omeprazole Magnesium [Prilosec Otc] 20 mg PO DAILY #15 tablet.dr Referrals: [facility] [Provider Group] - Follow up tomorrow MARYANNE MARCOS MD [ACTIVE STAFF] - Follow up as needed DEIRDRE EASLEY MD [ACTIVE STAFF] - Follow up as needed
[2019-05-18 16:12] LABS: ABSOLUTE BASOPHILS # (AUTO) 0.1 10^3/uL (0.0-0.2); ABSOLUTE EOSINOPHILS # (AUTO) 0.2 10^3/uL (0.0-0.6); ABSOLUTE LYMPHOCYTES (AUTO) 2.6 10^3/uL (0.5-4.7); ABSOLUTE MONOCYTES (AUTO) 0.5 10^3/uL (0.1-1.4); BASOPHILS % (AUTO) 0.8 % (0-2); EOSINOPHILS % (AUTO) 2.2 % (0-6); HEMATOCRIT 40.7 % (36.0-47.0); HEMOGLOBIN 14.1 g/dL (12.0-15.5); LYMPHOCYTES % (AUTO) 35.5 % (13-45); MEAN CORPUSCULAR HEMOGLOBIN 32.5 pg (27.0-33.4); MEAN CORPUSCULAR HGB CONC 34.5 g/dL (32.0-36.0); MEAN CORPUSCULAR VOLUME 94 fl (80-97); MONOCYTES % (AUTO) 7.2 % (3-13); PLATELET COUNT 472 10^3/uL (150-450); RED BLOOD COUNT 4.33 10^6/uL (3.72-5.28); RED CELL DISTRIBUTION WIDTH 13.7 % (11.5-14.0); SEGMENTED NEUTROPHILS % (AUTO) 54.3 % (42-78); TOTAL CELLS COUNTED % (AUTO) 100 %; WHITE BLOOD COUNT 7.4 10^3/uL (4.0-10.5)
--- NOTE | 2019-05-18 16:15 | RADIOLOGY REPORT (SQ) ---
EXAM DESCRIPTION: CHEST 2 VIEWS COMPLETED DATE/TIME: 05/18/2019 3:56 pm REASON FOR STUDY: chest pain COMPARISON: None. TECHNIQUE: Frontal and lateral radiographic views of the chest acquired. NUMBER OF VIEWS: Two view. LIMITATIONS: None. FINDINGS: LUNGS AND PLEURA: No opacities, masses or pneumothorax. No pleural effusion. MEDIASTINUM AND HILAR STRUCTURES: No masses or contour abnormalities. HEART AND VASCULAR STRUCTURES: Heart normal size. No evidence for failure. BONES: No acute findings. HARDWARE: None in the chest. OTHER: No other significant finding. IMPRESSION: NO SIGNIFICANT RADIOGRAPHIC FINDING IN THE CHEST. TECHNICAL DOCUMENTATION: JOB ID: [id number] [employer]- All Rights Reserved Reading location - IP/workstation name: [email or web address]
--- NOTE | 2019-05-18 16:22 | EKG REPORT ---
SEVERITY:- OTHERWISE NORMAL ECG - SINUS TACHYCARDIA : Confirmed by: Candice Moran MD 18-May-2019 16:21:24
[2019-05-18 16:32] LABS: ALBUMIN 4.4 g/dL (3.5-5.0); ALKALINE PHOSPHATASE 74 U/L (38-126); ANION GAP 9 (5-19); ASPARTATE AMINO TRANSFERASE 32 U/L (14-36); BILIRUBIN,DIRECT 0.1 mg/dL (0.0-0.4); BILIRUBIN,TOTAL 0.4 mg/dL (0.2-1.3); BLOOD UREA NITROGEN 9 mg/dL (7-20); CALCIUM 9.9 mg/dL (8.4-10.2); CARBON DIOXIDE 24 mmol/L (22-30); CHLORIDE 102 mmol/L (98-107); GLUCOSE 93 mg/dL (75-110); POTASSIUM 4.9 mmol/L (3.6-5.0); TOTAL PROTEIN 7.5 g/dL (6.3-8.2)
[2019-05-18 20:33] VITALS: BP 130/92
== END 2019-05-18 20:30 | disposition home or self-care (01) ==
LOC: ER 14:34
DX: R07.2 Precordial pain (principal); K21.9 Gastro-esophageal reflux disease without esophagitis; R00.0 Tachycardia, unspecified; R07.1 Chest pain on breathing; R10.13 Epigastric pain; R10.816 Epigastric abdominal tenderness; R06.02 Shortness of breath; M25.512 Pain in left shoulder; I10 Essential (primary) hypertension; I25.2 Old myocardial infarction; F17.200 Nicotine dependence, unspecified, uncomplicated; Z95.5 Presence of coronary angioplasty implant and graft; Z88.2 Allergy status to sulfonamides; Z82.49 Family history of ischemic heart disease and other diseases of the circulatory system
CPT/HCPCS: 93005; 99285; 36415; 83690; 85025; 80053; 84484; 85379; 71046; 93010; J3490